=== PATIENT | male | born 1995 | race African-American/Black ===

== ENCOUNTER 2019-08-13 17:30 | Inpatient (IN) ==
[2019-08-13] MEDS ORDERED: ATIVAN ONE (17:34)
[2019-08-13] MEDS ORDERED: NARCAN IV ONE (18:05)
[2019-08-13] MEDS ORDERED: ATIVAN IV ONE (18:06)
[2019-08-13] MEDS ORDERED: NS 1,000 ML IV PRN (18:27)
--- NOTE | 2019-08-13 18:33 | EKG Report ---
Test Performed on : 08/13/2019 5:41:52 PM Test Reason : unresponsive Blood Pressure : / mmHG Vent. Rate : 112 BPM Atrial Rate : 112 BPM P-R Int : 168 ms QRS Dur : 082 ms QT Int : 328 ms P-R-T Axes : 096 081 076 degrees QTc Int : 447 ms Sinus tachycardia. Possible Left atrial enlargement Nonspecific T wave abnormality Abnormal ECG No previous ECGs available Unconfirmed Result
--- NOTE | 2019-08-13 18:33 | PROVIDER DOCUMENTATION ---
This chart was entered by Madeleine Pickering Scribe, acting as scribe for Darline Rodriguez MD. HPI-Neurological Disorder - General Stated Complaint: POSS INTOXICATION Time Seen by Provider: 08/13/19 17:31 Source: EMS Allergies/Adverse Reactions: Patient Allergies Allergy/AdvReac Type Severity Reaction Status Date / Time No Known Allergies Allergy Verified 12/31/17 16:07 Home Medications: Home Medication List Medication Instructions Recorded Confirmed Last Taken Type Unobtainable [Home Meds 08/13/19 08/13/19 Unknown History Unobtainable] - History of Present Illness-Neuro Nature of Presenting Problem: Patient is a 23 year old male who presents to the ED via EMS with AMS. EMS states the call for the patient came in as hallucinations then the patient became unresponsive in route. EMS states patient refused to answer when police asked if he had used drugs. EMS reports patient's family stated patient has a history of schizophrenia and has not been taking his medications. upon arrival patient was unresponsive, foaming and myoclonus, pupils were pinpoint Severity: reports: moderate Onset/Duration: reports: just prior to arrival Timing: reports: still present Context: reports: other (AMS) Character of Altered Mental Status: reports: unresponsive Similar Symptoms Previously?: No Recently seen or treated by another doctor?: No Review of Systems - Adult - REVIEW OF SYSTEMS - ADULT ROS:: unobtainable per condition Constitutional: reports: no symptoms reported Eyes: reports: no symptoms reported Ears, Nose, Mouth & Throat: reports: no symptoms reported Cardiovascular: reports: no symptoms reported Respiratory: reports: no symptoms reported Gastrointestinal: reports: no symptoms reported Genitourinary: reports: no symptoms reported Musculoskeletal: reports: no symptoms reported Integumentary: reports: no symptoms reported Neurological: reports: no symptoms reported Psychiatric: reports: no symptoms reported Endocrine: reports: no symptoms reported Hematologic/Lymphatic: reports: no symptoms reported Allergic/Immunologic: reports: no symptoms reported All Other Systems: Reviewed and Negative Past History - Adult - PAST MEDICAL HISTORY-ADULT Review of Records: reports: Old Records Reviewed, Nursing Assessment Review, Medications Reviewed, Social history reviewed & non-contributory. Major Childhood Illnesses: reports: denies history Cardiovascular: reports: denies history Respiratory: reports: denies history Gastrointestinal: reports: denies history Obstetrical/Gynecological: reports: denies history Genitourinary: reports: denies history Musculoskeletal: reports: denies history Neurological: reports: denies history Psychiatric: reports: depression, schizophrenia Endocrine/Immune: reports: denies history Other Conditions: reports: denies history - PRIOR SURGERIES/PROCEDURES Surgical/Procedure History: reports: reviewed, not pertinent - PRIOR HOSPITALIZATIONS Prior Hospitalizations: reports: none - IMMUNIZATION STATUS Childhood Immunizations: See Nurse Assessment Flu Vaccine: See Nurse Assessment - FAMILY HISTORY Family History: reviewed, not pertinent - SOCIAL HISTORY Smoking: cigarettes (former) Substance Use: denies Physical Exam- Neurological - Physical Exam-Neuro Initial Vital Signs Reviewed: Yes General Appearance: other (unresponsive) HENMT: normocephalic/atraumatic Head Injury: no evidence of injury Respiratory: chest non-tender, lungs clear, increased rate Cardiovascular: tachycardia 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 Exam: other (unable to assess per patient's condition) Coordination/Gait: other (unable to assess per patient's condition) Motor/Sensory: other (unable to assess per patient's condition) Neurologic: other (unable to assess per patient's condition) Integumentary: normal color, normal turgor, warm/dry Psych/Mental Status: other (unable to assess per patient's condition) Progress - PLAN OF CARE/RESULTS Progress/Plan/Lab Results: Laboratory Results - last 24 hr 08/13/19 08/13/19 08/13/19 17:49 17:55 17:55 WBC 7.27 RBC 4.65 L Hgb 13.9 L Hct 41.1 L MCV 88.4 MCH 29.9 MCHC 33.8 RDW Std Deviation 11.9 Plt Count 166 MPV 13.0 H Immature Gran % (Auto) 0.1 Neut % (Auto) 57.8 Lymph % (Auto) 30.7 Weld % (Auto) 9.8 H Eos % (Auto) 1.2 Baso % (Auto) 0.4 Immature Gran # (Auto) 0.01 Neut # (Auto) 4.20 Lymph # (Auto) 2.23 Weld # (Auto) 0.71 H Eos # (Auto) 0.09 Baso # (Auto) 0.03 PT INR PTT (Actin FS) Specimen Type Sample Site POC pH pH POC pCO2 pCO2 POC pO2 pO2 POC HCO3 HCO3 POC Total CO2 Base Excess POC Base Excess POC O2 Saturation Oxyhemoglobin ABG O2 Sat (Calculated) ABG O2 Saturation ABG Carboxyhemoglobin ABG Methemoglobin Brant Test A-a O2 Difference Total Hemoglobin POC Hemoglobin POC Hematocrit POC Sodium POC Potassium POC Ioniz Calcium Lactate Blood Gas Modality FiO2 % Sodium Potassium Chloride Carbon Dioxide Anion Gap BUN Creatinine Estimated GFR/1.73 m2 BUN/Creatinine Ratio Glucose POC Glucose 90 Calculated Osmolality Calcium Total Bilirubin AST ALT Alkaline Phosphatase Troponin T < 0.010 Total Protein Albumin Globulin Albumin/Globulin Ratio Urine Source Urine Color Urine Clarity Urine pH Ur Specific [place] Urine Protein Urine Ketones Urine Blood Urine Nitrite Urine Bilirubin Urine Urobilinogen Urine Microscopic RBC Urine WBC Urine Microscopic WBC Ur Epithelial Cells Urine Crystals Urine Bacteria Urine Casts Urine Yeast Urine Glucose Urine Opiates Screen Ur Oxycodone Screen Urine Methadone Screen U Propoxyphene Qual Ur Barbituates Screen Ur Tricyclics Screen Ur Phencyclidine Scrn Ur Amphetamines Screen U Methamphetamines Scrn U Benzodiazepines Scrn Urine Cocaine Screen U Cannabinoids Screen Plasma/Serum Ethyl Alc 08/13/19 08/13/19 08/13/19 17:55 17:55 17:55 WBC RBC Hgb Hct MCV MCH MCHC RDW Std Deviation Plt Count MPV Immature Gran % (Auto) Neut % (Auto) Lymph % (Auto) Weld % (Auto) Eos % (Auto) Baso % (Auto) Immature Gran # (Auto) Neut # (Auto) Lymph # (Auto) Weld # (Auto) Eos # (Auto) Baso # (Auto) PT 13.9 INR 1.02 PTT (Actin FS) 29.7 Specimen Type Sample Site POC pH pH POC pCO2 pCO2 POC pO2 pO2 POC HCO3 HCO3 POC Total CO2 Base Excess POC Base Excess POC O2 Saturation Oxyhemoglobin ABG O2 Sat (Calculated) ABG O2 Saturation ABG Carboxyhemoglobin ABG Methemoglobin Brant Test A-a O2 Difference Total Hemoglobin POC Hemoglobin POC Hematocrit POC Sodium POC Potassium POC Ioniz Calcium Lactate Blood Gas Modality FiO2 % Sodium 141 Potassium 3.0 L Chloride 100 Carbon Dioxide 26 Anion Gap 15 BUN 10 Creatinine 1.0 Estimated GFR/1.73 m2 > 60 BUN/Creatinine Ratio 10 Glucose 116 H POC Glucose Calculated Osmolality 281 Calcium 10.1 Total Bilirubin 0.60 AST 38 H ALT 16 Alkaline Phosphatase 100 Troponin T Total Protein 7.5 Albumin 4.9 Globulin 3.0 Albumin/Globulin Ratio 2.0 Urine Source Urine Color Urine Clarity Urine pH Ur Specific [place] Urine Protein Urine Ketones Urine Blood Urine Nitrite Urine Bilirubin Urine Urobilinogen Urine Microscopic RBC Urine WBC Urine Microscopic WBC Ur Epithelial Cells Urine Crystals Urine Bacteria Urine Casts Urine Yeast Urine Glucose Urine Opiates Screen Ur Oxycodone Screen Urine Methadone Screen U Propoxyphene Qual Ur Barbituates Screen Ur Tricyclics Screen Ur Phencyclidine Scrn Ur Amphetamines Screen U Methamphetamines Scrn U Benzodiazepines Scrn Urine Cocaine Screen U Cannabinoids Screen Plasma/Serum Ethyl Alc 08/13/19 08/13/19 08/13/19 18:57 19:09 19:54 WBC RBC Hgb Hct MCV MCH MCHC RDW Std Deviation Plt Count MPV Immature Gran % (Auto) Neut % (Auto) Lymph % (Auto) Weld % (Auto) Eos % (Auto) Baso % (Auto) Immature Gran # (Auto) Neut # (Auto) Lymph # (Auto) Weld # (Auto) Eos # (Auto) Baso # (Auto) PT INR PTT (Actin FS) Specimen Type ARTERIAL Sample Site L RADIAL POC pH 7.423 pH 7.45 POC pCO2 44.0 pCO2 38 POC pO2 21.0 L* pO2 99 POC HCO3 28.7 H HCO3 26.7 H POC Total CO2 30 H Base Excess 2.4 POC Base Excess 4 H POC O2 Saturation 37 L Oxyhemoglobin 94.6 L ABG O2 Sat (Calculated) 19.2 ABG O2 Saturation 99.0 ABG Carboxyhemoglobin 3.10 H ABG Methemoglobin 1.3 Brant Test YES A-a O2 Difference 3.0 Total Hemoglobin 14.4 POC Hemoglobin 13.9 POC Hematocrit 41 POC Sodium 138 POC Potassium 3.1 L POC Ioniz Calcium 1.19 Lactate 0.80 Blood Gas Modality ROOM AIR FiO2 % 21.0 Sodium Potassium Chloride Carbon Dioxide Anion Gap BUN Creatinine Estimated GFR/1.73 m2 BUN/Creatinine Ratio Glucose POC Glucose 90 Calculated Osmolality Calcium Total Bilirubin AST ALT Alkaline Phosphatase Troponin T Total Protein Albumin Globulin Albumin/Globulin Ratio Urine Source Urine Color Urine Clarity Urine pH Ur Specific [place] Urine Protein Urine Ketones Urine Blood Urine Nitrite Urine Bilirubin Urine Urobilinogen Urine Microscopic RBC Urine WBC Urine Microscopic WBC Ur Epithelial Cells Urine Crystals Urine Bacteria Urine Casts Urine Yeast Urine Glucose Urine Opiates Screen NONE DETECTED Ur Oxycodone Screen NONE DETECTED Urine Methadone Screen NONE DETECTED U Propoxyphene Qual NONE DETECTED Ur Barbituates Screen NONE DETECTED Ur Tricyclics Screen NONE DETECTED Ur Phencyclidine Scrn NONE DETECTED Ur Amphetamines Screen NONE DETECTED U Methamphetamines Scrn NONE DETECTED U Benzodiazepines Scrn PRESUMPTIVE POSITIVE A Urine Cocaine Screen NONE DETECTED U Cannabinoids Screen PRESUMPTIVE POSITIVE A Plasma/Serum Ethyl Alc 08/13/19 19:54 WBC RBC Hgb Hct MCV MCH MCHC RDW Std Deviation Plt Count MPV Immature Gran % (Auto) Neut % (Auto) Lymph % (Auto) Weld % (Auto) Eos % (Auto) Baso % (Auto) Immature Gran # (Auto) Neut # (Auto) Lymph # (Auto) Weld # (Auto) Eos # (Auto) Baso # (Auto) PT INR PTT (Actin FS) Specimen Type Sample Site POC pH pH POC pCO2 pCO2 POC pO2 pO2 POC HCO3 HCO3 POC Total CO2 Base Excess POC Base Excess POC O2 Saturation Oxyhemoglobin ABG O2 Sat (Calculated) ABG O2 Saturation ABG Carboxyhemoglobin ABG Methemoglobin Brant Test A-a O2 Difference Total Hemoglobin POC Hemoglobin POC Hematocrit POC Sodium POC Potassium POC Ioniz Calcium Lactate Blood Gas Modality FiO2 % Sodium Potassium Chloride Carbon Dioxide Anion Gap BUN Creatinine Estimated GFR/1.73 m2 BUN/Creatinine Ratio Glucose POC Glucose Calculated Osmolality Calcium Total Bilirubin AST ALT Alkaline Phosphatase Troponin T Total Protein Albumin Globulin Albumin/Globulin Ratio Urine Source CATH Urine Color YELLOW Urine Clarity CLEAR Urine pH 6.5 Ur Specific [place] 1.020 Urine Protein TRACE A Urine Ketones 3+(Large) A Urine Blood NEGATIVE Urine Nitrite NEGATIVE Urine Bilirubin NEGATIVE Urine Urobilinogen 1 Urine Microscopic RBC Not Reportable Urine WBC 1+ A Urine Microscopic WBC 10-20 A Ur Epithelial Cells >10 A Urine Crystals NONE SEEN Urine Bacteria 1+ Urine Casts NONE SEEN Urine Yeast NONE SEEN Urine Glucose NEGATIVE Urine Opiates Screen Ur Oxycodone Screen Urine Methadone Screen U Propoxyphene Qual Ur Barbituates Screen Ur Tricyclics Screen Ur Phencyclidine Scrn Ur Amphetamines Screen U Methamphetamines Scrn U Benzodiazepines Scrn Urine Cocaine Screen U Cannabinoids Screen Plasma/Serum Ethyl Alc Orders Category Date Time Status Admit - [facility] Routine AdmDCTranf 08/13/19 20:00 Active Activity - Up Ad Julia ORDERED Care 08/13/19 20:03 Active Cardiac Monitoring DIRECTED Care 08/13/19 18:28 Completed Finger Stick Blood Sugar (ED) DIRECTED Care 08/13/19 18:28 Completed Mendez Cath Insertion ORDERED Care 08/13/19 19:57 Active Neurological Check Q 4-HR ASSESS Care 08/13/19 20:03 Active Oxygen Therapy- ED Nursing DIRECTED Care 08/13/19 18:28 Active Saline Loc DIRECTED Care 08/13/19 20:03 Active Saline Loc NOW Care 08/13/19 18:28 Active Use Oxygen.Protocol ORDERED Care 08/13/19 17:57 Active Vital Signs Order Q 4-HR ASSESS Care 08/13/19 20:03 Active NPO Diet 08/13/19 20:03 Active CHEST-PORTABLE [RAD] Stat Exams 08/13/19 18:[address] HEAD W/O CONTRAST [CT] Stat Exams 08/13/19 18:28 Completed ABG [RESP] Routine Lab 08/13/19 19:09 Completed ALCOHOL BLOOD Stat Lab 08/13/19 17:55 Completed CBC WITH ELECTRONIC DIFF [HEME] Stat Lab 08/13/19 17:55 Completed COMPREHENSIVE METABOLIC PANEL [CHEM] Stat Lab 08/13/19 17:55 Completed PROTIME WITH INR [COAG] Stat Lab 08/13/19 17:55 Completed PTT [COAG] Stat Lab 08/13/19 17:55 Completed TROPONIN T Stat Lab 08/13/19 17:55 Completed URINE DRUG SCREEN PL Stat Lab 08/13/19 19:54 Completed ua [URINALYSIS PL W/POSS RFLX CULT] [URINALYSIS] Stat Lab 08/13/19 19:54 Completed 0.9% Sodium Chloride Inj [Ns] 1,000 ml Med 08/13/19 20:03 Discontinued IV 150 mls/hr 0.9% Sodium Chloride Inj [Ns] 1,000 ml Med 08/13/19 18:27 Discontinued IV 999 mls/hr 0.9% Sodium Chloride Inj [Ns] 1,000 ml Med 08/13/19 19:55 Discontinued IV 999 mls/hr Ketorolac [Toradol] Med 08/13/19 20:03 Discontinued 15 mg IV Q4H PRN PRN Levetiracetam [Keppra] 500 mg Med 08/13/19 21:00 Active 0.9% Sodium Chloride Inj [Ns] 100 ml IV BID Lorazepam [Ativan] Med 08/13/19 18:06 Discontinued 2 mg IV NOW ONE Lorazepam [Ativan] Med 08/13/19 20:04 Discontinued 2 mg IV Q6H PRN PRN Naloxone [Narcan] Med 08/13/19 18:05 Discontinued 0.2 mg IV NOW ONE Ondansetron [Zofran] Med 08/13/19 20:03 Discontinued 4 mg IV Q4H PRN PRN Oxygen Device Stat Oth 08/13/19 17:57 Active EKG [EKG] Stat Ther 08/13/19 18:28 Draft Transfer/Admit Order [TRANSFER] Routine Transfer 08/13/19 20:02 Completed Result Diagrams: 08/13/19 17:55 08/13/19 17:55 - CONSULTS/PCP/HOSPITALIST Notification #1 *Consult/PCP/Hospitalist*: Dr Rios Time Discussed: 19:30 Consult Disposition: Admit (ok to admit) Departure - Departure Date of Disposition Decision: 08/13/19 Time of Disposition Decision: 19:30 DIAGNOSIS: Unresponsive episode, Status epilepticus Disposition: ADMITTED INPATIENT 09 Certified Medical Emergency: Emergent Condition: Good - Critical Care Note This patient required my direct & personal management of CC.: No Attestation - Physician/ SHAR Attestation Patient care was provided by Advanced Practice Provider:: No The physician spent face to face time with patient:: Yes Advanced Practice Provider documentation review:: Supervising physician onsite and consulted in the evaluation and care of this patient. The physician did have a face to face encounter with the patient. This chart was documented by the indicated scribe, (Madeleine Pickering Scribe) and accurately reflects the services I performed and decisions made by me, Darline Rodriguez MD, as attested by the provider's signature.
[2019-08-13 18:48] LABS: BASO# 0.03 X1000 (0.0-0.2); BASO% 0.4 % (0.0-0.8); EOS# 0.09 X1000 (0.0-0.7); EOS% 1.2 % (0.0-10.0); HEMATOCRIT 41.1 % (42.0-52.0); HEMOGLOBIN 13.9 g/dL (14.0-18.0); IMM GRAN# 0.01 X1000 (0.0-0.04); IMM GRAN% 0.1 % (0.0-0.5); LYMPH# 2.23 X1000 (1.2-3.4); LYMPH% 30.7 % (20.5-51.1); MCH 29.9 PG (27-31); MCHC 33.8 g/dL (33-37); MCV 88.4 FL (81-99); MONO# 0.71 X1000 (0.11-0.59); MONO% 9.8 % (1.7-9.3); NEUT% 57.8 % (42.2-75.2); PLT 166 X1000 (130-400); RBC 4.65 XMIL (4.7-6.1); RDW 11.9 % (11.5-14.5); WBC 7.27 X1000 (4.8-10.8)
[2019-08-13 19:02] LABS: INR 1.02; PROTIME 13.9 Seconds (11.0-16.0)
[2019-08-13 19:03] LABS: PTT 29.7 Seconds (22.3-41.8)
[2019-08-13 19:17] LABS: AGAP 15; ALBUMIN 4.9 g/dL (3.5-5.0); ALKALINE PHOSPHATASE 100 U/L (32-122); BUN 10 mg/dL (8-22); CALCIUM 10.1 mg/dL (8.8-10.2); CHLORIDE 100 mmol/L (98-107); COSMO 281; ESTIMATED GFR > 60; GLUCOSE 116 mg/dL (70-104); GOT 38 U/L (10-34); GPT 16 U/L (10-44); SODIUM 141 mmol/L (136-145); TCO2 26 mmol/L (25-35); TOTAL PROTEIN 7.5 g/dL (6.3-8.3)
--- NOTE | 2019-08-13 19:17 | Diag Imaging Result Doc PS360 ---
EXAM: CT HEAD W/O CONTRAST INDICATION: unresponsive, seizure TECHNIQUE: This exam was performed using automated exposure control, adjustment of mA or kV according to patient size, and/or use of iterative reconstruction technique. COMPARISON: None. FINDINGS: There is no definite acute infarct given the limited sensitivity of CT versus MRI. There is no discrete intracranial mass, mass effect, or intracranial hemorrhage. There is minimal right maxillary sinus mucosal thickening. Surrounding soft tissues and bony structures are essentially unremarkable, otherwise. IMPRESSION: No evidence of acute intracranial pathology. Electronically signed by Sarmad Harris 08/13/2019 7:14 PM
[2019-08-13 19:31] LABS: BE 2.4 mmoll (-3.0-3.0); BLOOD TYPE ARTERIAL; HCO3-(ACT) 26.7 mmoll (20.0-26.0); METHB 1.3 % (0.0-1.5); O2(CT) 19.2 mL/dL (15.0-23.0); O2HB 94.6 % (95.0-99.0); PCO2(98.6) 38 mmHg (35-45); PO2(98.6) 99 mmHg (60-100); SAMPLE BLOOD; THB 14.4 g/dL (11.5-17.4); pH(98.6) 7.45 (7.35-7.45)
--- NOTE | 2019-08-13 19:34 | Diag Imaging Result Doc PS360 ---
EXAM: CHEST-PORTABLE INDICATION: unresponsive TECHNIQUE: One view COMPARISON: 12/03/2018 FINDINGS: The lungs are grossly clear. There is no discrete pleural fluid collection or pneumothorax. The cardiomediastinal silhouette and central vasculature are grossly unremarkable. IMPRESSION: No evidence of acute pathology by plain radiograph. Electronically signed by Sarmad Harris 08/13/2019 7:32 PM
[2019-08-13 19:35] LABS: ALLEN TEST YES; MODALITY ROOM AIR
[2019-08-13] MEDS ORDERED: NS 1,000 ML IV ONE ×3 (19:55→22:23)
[2019-08-13] MEDS ORDERED: TORADOL IV PRN (20:03)
[2019-08-13] MEDS ORDERED: ZOFRAN IV PRN (20:03)
[2019-08-13] MEDS ORDERED: ATIVAN IV PRN (20:04)
[2019-08-13 20:36] LABS: UR AMPHETAMINES QUAL NONE DETECTED (NONE DETECT); UR BARBITUATES QUAL NONE DETECTED (NONE DETECT); UR BENZODIAZEPIN QUAL PRESUMPTIVE POSITIVE (NONE DETECT); UR CANNABINOIDS QUAL PRESUMPTIVE POSITIVE (NONE DETECT); UR COCAINE QUAL NONE DETECTED (NONE DETECT); UR METHADONE QUAL NONE DETECTED (NONE DETECT); UR METHAMPHETAMINE QUAL NONE DETECTED (NONE DETECT); UR OPIATES QUAL NONE DETECTED (NONE DETECT); UR OXYCODONE QUAL NONE DETECTED (NONE DETECT); UR PCP QUAL NONE DETECTED (NONE DETECT); UR PROPOXYPHENE QUAL NONE DETECTED (NONE DETECT); UR TCA QUAL NONE DETECTED (NONE DETECT)
[2019-08-13] MEDS ORDERED: KEPPRA 500 MG in NS 100 ML IV SCH (21:00)
[2019-08-13 21:04] LABS: BILIRUBIN URINE NEGATIVE (NEGATIVE); BLOOD URINE NEGATIVE (NEGATIVE); CLARITY CLEAR (CLEAR); COLOR YELLOW; GLUCOSE URINE NEGATIVE (NEGATIVE); KETONE URINE 3+(Large) mg/dL (NEGATIVE); LEUKOCYTES URINE 1+ (NEGATIVE); NITRITE URINE NEGATIVE (NEGATIVE); PH URINE 6.5; PROTEIN URINE TRACE mg/dL (NEGATIVE); UROBILINOGEN URINE 1 mg/dL
[2019-08-13 21:09] LABS: URINE BACTERIA 1+ /HFP; URINE CAST NONE SEEN /LPF; URINE CRYSTAL NONE SEEN /HPF; URINE EPITHELIAL CELLS >10 /HPF (<10); URINE SOURCE CATH; URINE YEAST NONE SEEN /HPF
[2019-08-13] MEDS: NS 1,000 ML IV SCH (22:51)
[2019-08-14 00:12] LABS: I-STAT BE 4 mmoll (-2-3); I-STAT GLUCOSE 90 mg/dL (70-105); I-STAT HEMOGLOBIN 13.9 g/dL (11.5-17.5); I-STAT K 3.1 mmoll (3.5-4.9); I-STAT SODIUM 138 mmoll (138-146); I-STAT TCO2 30 mmoll (23-27); I-STAT pH 7.423 (7.350-7.450)
[2019-08-14] MEDS: NS 1,000 ML IV SCH ×3 (07:51→22:18)
[2019-08-14] MEDS ORDERED: TYLENOL PO PRN (08:20)
[2019-08-14] MEDS ORDERED: ZOFRAN IV PRN (08:20)
[2019-08-14] MEDS ORDERED: ATIVAN IV PRN (08:28)
[2019-08-14 08:59] LABS: BE 0.1 mmoll (-3.0-3.0); BLOOD TYPE ARTERIAL; METHB 1.4 % (0.0-1.5); O2(CT) 16.7 mL/dL (15.0-23.0); O2HB 95.2 % (95.0-99.0); PCO2(98.6) 39 mmHg (35-45); PO2(98.6) 86 mmHg (60-100); SAMPLE BLOOD; SAO2 98.9 % (95.0-100.0); THB 12.4 g/dL (11.5-17.4); pH(98.6) 7.41 (7.35-7.45)
[2019-08-14] MEDS ORDERED: KEPPRA 1,500 MG/NS 1,500 MG/100 ML IVPB IV ONE (09:00)
[2019-08-14] MEDS ORDERED: KEPPRA 500 MG/NS 500 MG/100 ML IVPB IV SCH (09:00)
[2019-08-14 09:02] LABS: ALLEN TEST YES; MODALITY ROOM AIR
[2019-08-14 09:09] LABS: BASO# 0.04 X1000 (0.0-0.2); BASO% 0.8 % (0.0-0.8); EOS# 0.11 X1000 (0.0-0.7); EOS% 2.1 % (0.0-10.0); HEMATOCRIT 36.3 % (42.0-52.0); HEMOGLOBIN 11.9 g/dL (14.0-18.0); IMM GRAN# 0.01 X1000 (0.0-0.04); IMM GRAN% 0.2 % (0.0-0.5); LYMPH# 1.73 X1000 (1.2-3.4); LYMPH% 32.5 % (20.5-51.1); MCH 29.8 PG (27-31); MCHC 32.8 g/dL (33-37); MCV 90.8 FL (81-99); MONO# 0.41 X1000 (0.11-0.59); MONO% 7.7 % (1.7-9.3); MPV 12.3 FL (7.4-10.4); NEUT# 3.02 X1000 (1.4-6.5); NEUT% 56.7 % (42.2-75.2); PLT 141 X1000 (130-400); RDW 12.1 % (11.5-14.5); WBC 5.32 X1000 (4.8-10.8)
--- NOTE | 2019-08-14 09:28 | EKG Report ---
Test Performed on : 08/14/2019 08:31:33 AM Test Reason : bradycardic/tachycardic arrythmia Blood Pressure : / mmHG Vent. Rate : 072 BPM Atrial Rate : 078 BPM P-R Int : 000 ms QRS Dur : 074 ms QT Int : 370 ms P-R-T Axes : 059 086 078 degrees QTc Int : 405 ms Normal sinus rhythm. Otherwise normal ECG When compared with ECG of 14-AUG-2019 08:30, (Unconfirmed) Current undetermined rhythm precludes rhythm comparison, needs review Confirmed by Ant Masterson MD ([id number]) on 08/16/2019 7:45:56 AM
[2019-08-14 10:02] LABS: AGAP 10; ALBUMIN 3.9 g/dL (3.5-5.0); ALKALINE PHOSPHATASE 81 U/L (32-122); BUN 8 mg/dL (8-22); CALCIUM 9.1 mg/dL (8.8-10.2); CHLORIDE 109 mmol/L (98-107); COSMO 283; CREATININE 0.9 mg/dL (0.7-1.2); ESTIMATED GFR > 60; GLUCOSE 85 mg/dL (70-104); GOT 25 U/L (10-34); GPT 12 U/L (10-44); MAGNESIUM 1.8 mg/dL (1.5-2.7); POTASSIUM 3.6 mmol/L (3.5-5.1); SODIUM 143 mmol/L (136-145); TCO2 23 mmol/L (25-35); TOTAL PROTEIN 6.3 g/dL (6.3-8.3)
[2019-08-14] MEDS: POTASSIUM CHLORIDE 20 MEQ/SWI 20 MEQ/100 ML IVPB IV SCH ×2 (10:49→12:30)
--- NOTE | 2019-08-14 10:53 | HISTORY AND PHYSICAL ---
PRIMARY CARE PROVIDER: No one. CHIEF COMPLAINT: Mr. Vasile Osorio is a 23-year-old male with a medical history of schizoaffective disorder, bipolar type, and generalized anxiety disorder. Apparently, there was a call for the patient that came as he was noted to have hallucinations, but then became under unresponsive in route. He refused to answer the police if he had any drugs or use any drugs. Apparently, the patient's family stated that he had a history of schizophrenia, not been on his medications. When he arrived, he was unresponsive, foaming and myoclonus. His pupils were pinpoint. Also noted that once he came through, he was able to tell them his name, but then this morning had another seizure-like activity. It lasted close to 2 minutes. It was noted that he had full body jerking type motions, head turn to the left. Pupils were equal and reactive. Postictal right after but also that was noted he was having bradycardia along with tachycardia anywhere from 50s up to the 1 teens and is noted that every time he went up to the teens is when he would have those small jerking like body movements, but was alert right after. He is very still very confused. He is unable to really answer many questions appropriately, comes out with odd responses. Currently, he is having an echocardiogram performed at the bedside. He still continues to have jeevan-tachy pretty continuously and we are going to send him over to [facility] ICU for Cardiology to follow more closely and may be if he still needs to have a neurology consult we can have one cruise consultant on Saturday. We started him on antiepileptic drugs. We will monitor him closely. PAST MEDICAL HISTORY: This is obtained through old medical records: 1. Schizoaffective disorder bipolar type. 2. Generalized anxiety disorder. 3. Suicidal ideations. 4. Erratic behavior. 5. It is noted that he was admitted to [facility] April 15, 2019 with suicidal ideations in and erratic behavior. He was held on verbal court order, told the family at that time he wanted to burn himself and he was having paranoid delusions, neglecting hygiene. Medication noncompliance at that time. SURGICAL HISTORY: None. SOCIAL HISTORY: 04/15/2019 admission to [facility] or to [facility] it looks like and reports that he currently lives with his brother and according to an older chart he does use tobacco, denies alcohol and he does admit actually that he smokes marijuana. FAMILY HISTORY: Unknown. He would not answer questions. ALLERGIES: No known drug allergies. HOME MEDICATIONS: Unable to answer that as well and trying to review external medication history. It does not look like he has had anything filled either. REVIEW OF SYSTEMS: Again unable to obtain. He denies any pain. He denies ever having seizures. This was difficult to obtain. PHYSICAL EXAMINATION: VITAL SIGNS: Temperature 99.4 degrees, heart rate 50, respiratory rate 24, blood pressure 111/64, O2 saturation 100% on room air, and his heart rate anywhere from 40s to 1 teens. It is in an out every few seconds. GENERAL: Mr. Vasile Osorio is a 23-year-old male. He has a very bad body odor, unkept, dirty socks. He it appears as though he has not been taking good hygiene of himself. HEENT: Atraumatic, normocephalic. Pupils are equal and reactive. He will not follow commands, so he will not do extraocular movements. Mucous membranes are moist. NECK: Trachea midline. CARDIOVASCULAR: Again S1-S2 but it can be tachycardic and bradycardic when auscultating. No lower extremity edema. +2 dorsalis and radial pulses. Negative JVD or carotid bruits. No rubs gallops or murmurs. PULMONARY: Clear to auscultation. Bilateral breath sounds. No accessory muscle use or work of breathing noted. GI: Soft, nontender, nondistended. Positive bowel sounds x4. EXTREMITIES: Moves all extremities equally. Full range of motion. NEUROLOGIC: Oriented to name only. He will not follow commands. LABORATORY DATA: White blood cells 5000, hemoglobin 11, hematocrit 36, platelet count 141,000. ABGs 7.41, pCO2 39, pO2 86, bicarb 25, base excess 0.1, saturation 95%, carboxyhemoglobin 2.3, lactate 0.8, this is on room air. Sodium 143, potassium 3.6, BUN 8, creatinine 0.9, glucose 85, calcium 9.1, magnesium 1.8, bilirubin 0.60, AST 25, ALT 12. Troponin less than 0.01. Albumin 3.9. Urinalysis trace protein, 3+ ketone, 1+ white blood cells, 10 to 20 microscopic white blood cells, 1+ bacteria. Urine positive for benzos and cannabinoids. Negative for alcohol. IMAGING: Chest x-ray: No evidence of acute findings. Head CT: No evidence of acute findings. EKG: Sinus tachycardia rate was 112. Repeat EKG today is undetermined rhythm. Rate was 72, QTc was 405 is probably a sinus. There was a P wave. It is a sinus rhythm. ASSESSMENT AND PLAN: 1. Questionable seizure-like activity could be heart related as it seems that he has this activity when he gets tachycardic almost is if the heart is beating hard and you could see his whole body beating with it. Despite that he has had p.r.n. Ativan ordered and has been started on Keppra. The patient denies ever having a seizure. Can consult neurology on Saturday. Head CT is negative. 2. Jeevan-tachy syndrome, cause unknown. He is currently getting an echocardiogram to fully evaluate. Keep electrolytes replaced. He was hypokalemic on admission and we will consult Cardiology. 3. Schizoaffective disorder. It is really unclear what medications he takes for this. He is noncompliant with his medications and has been off of them. Apparently, he was on at one point, Cogentin 101 mg p.o. twice a day and Seroquel 100 mg p.o. daily, so those can be resumed once he is more alert and not having any issues with questionable seizures. 4. Deep venous thrombosis prophylaxis sequential compression devices. Dictated by JOVON Ovalle for Ivan Ying MD Addendum: Patient seen and examined by myself. Agree with JOVON note. It reflects my assessment and plan. Patient is being admitted to hospital for questionable seizure activity. While he was admitted to hospital we noticed he has jeevan tachy arrhythmia so we will consult Cardiology and transfer this patient to ICU at [facility]. Will monitor patient closely. cc: JOVON Ovalle MD [facility] HOSPITALDorothy
--- NOTE | 2019-08-14 16:21 | Diag Imaging Result Doc PS360 ---
EXAM: MRI BRAIN W/WO CONTRAST HISTORY: suspected stroke TECHNIQUE: Routine with and without contrast. COMPARISON: None. FINDINGS: EXAM: MRI BRAIN W/WO CONTRAST HISTORY: suspected stroke TECHNIQUE: Multisequence, multiplanar images of the brain were obtained without contrast as per standard protocol. COMPARISON: None. FINDINGS: There are no extra-axial collections. Diffusion images show no evidence for acute infarct. There is no evidence for hemorrhage. There is no hydrocephalus. No midline shift or mass effect. There is no abnormal signal within the brainstem, cerebellum, or cerebral hemispheres. There are no abnormal regions of contrast enhancement. IMPRESSION: Normal pre and post contrasted MRI of the brain. Electronically signed by Sayra Minor 08/14/2019 4:19 PM
--- NOTE | 2019-08-14 17:09 | ECHO REPORT ---
ORDER DATE: 08/14/2019 INTERPRETING PHYSICIAN: Sushant Cruz MD INDICATION: A 23-year-old male with abnormal EKG. M-MODE MEASUREMENTS: Left ventricle end diastole: 4.2 cm. Left ventricle end systole: 3.0 cm. Posterior wall: 1.0 cm. Interventricular septum: 0.8 cm. Left atrium: 3.6 cm. Aortic diameter: 2.9 cm. SUMMARY OF 2-DIMENSIONAL IMAGIN. The left ventricular function is normal. Ejection fraction is estimated at 56%. There is no wall motion abnormality noted. The atria and the right ventricle appear to be normal. 2. The mitral valve looks normal. Color flow mapping unremarkable. 3. Pulsed wave Doppler of mitral inflow is normal. 4. The tissue Doppler of septal and lateral mitral annulus averages 14 cm. There is no diastolic dysfunction. 5. The pulmonary venous flow is normal. 6. The aortic valve has three cusps. They open normally. Color flow mapping is unremarkable. 7. The tricuspid valve shows a mild degree of regurgitation. 8. Pulmonary pressure is estimated at 29 mmHg. The pulmonic valve is unremarkable. 9. There is no pericardial effusion, no mass, and no thrombus. At the end of the study there were two injections of agitated saline that showed slight crossing of bubbles from right to left. No obvious atrial septal defect is apparent. On one occasion the bubbles appears to be entering the left atrium late during the cardiac cycles, suggesting that the right to left shunt might be taking place in the pulmonary circulation. If significant hypoxemia is found ,consider doing CT of lungs with special technique to identify AV malformation. (consult with Radiologist). Clinical correlation is recommended. cc: MD Ivan Sneed MD [facility]
[2019-08-14] MEDS ORDERED: KEPPRA 750 MG in NS 100 ML IV SCH ×2 (21:00→22:00)
--- NOTE | 2019-08-14 21:41 | CARDIOLOGY CONSULTATION ---
DATE: 08/14/2019 CONSULTATION REQUESTED BY: The hospitalist service. REASON FOR CONSULTATION: Cardiac arrhythmia. CHIEF COMPLAINT: Unresponsiveness, hallucinations. HISTORY: Patient presented to the emergency room at [facility] yesterday, 08/13/2019, with complaints of unresponsiveness and reported hallucinations. Per the EMS, the patient apparently refused to answer when he was confronted by police about using drugs. The patient has a history of mental disease. After being admitted to [facility], the nurses observed the presence of some cardiac arrhythmia when his heart rate seemed to slow down and then sped up intermittently. They got worried and notified the primary service who in turn requested consultation. I do not have the benefit of talking to any family member and there is no past record indicating the presence of any organic heart disease. The patient has been followed by Dr. Wilbert Macias. There are multiple entries in the medical records, going back to 12/06/2014,, about having a visit with the emergency room department and subsequently admissions to the [facility] with anger, rage, violent behavior, and subsequently a diagnosis of schizophrenia. PAST MEDICAL HISTORY: No past history can be obtained. SURGICAL HISTORY: Negative as far as I can tell. From review of records, psychiatrists and other physicians have not documented any major surgery. His history revolves around psychiatric illness which may be found in the pertinent records. SOCIAL HISTORY: He is single and he lives with a friend. He is unemployed. He is not taking any prescription medication. His drug screen at the time of presentation to the ER indicates that he has evidence of benzodiazepine and cannabinoids in his urine. FAMILY HISTORY: Unknown. ALLERGIES: Unable to identified. REVIEW OF SYSTEMS: Not obtainable. The patient is nonverbal at this time. PHYSICAL EXAMINATION: Vital signs: Blood pressure is 126/75, temperature 99 degrees, pulse 64, respirations 22. General: The patient is an adult male, slightly malnourished. According to bed scale and height, his BMI is 17.1. He is slender. He is just lying on his back unresponsive. He does not follow any commands or communicates or connects with me in any way. His pupils are relatively small and they react to light. He has withdrawal to painful stimuli. His breathing pattern is regular. HEENT: Otherwise unremarkable. No cervical bruits. No masses. Chest: Symmetrical breath sounds. Chest x-ray done in the ER showed no pathology in the chest. Heart: Sounds are regular and rhythmic. No gallop or murmur. His ECG shows sinus rhythm with prominent voltage and early repolarization, which is a normal variant. His echocardiogram today showed excellent LV systolic function, question of some small amount of shunting of bubbles from right to left, suggesting either patent foramen ovale, very small, versus AV malformation of the lung. Abdomen: Soft. No hepatosplenomegaly is noted. No bruits. Extremities: Show good pulses. No peripheral edema. Neurological: Again, he is not cooperative at this time. I do not think he is comatose. This is probably some sort of conversive reaction. EKG: shows SR with sinus arrhythmia, early repolarization. IMPRESSION: 1. Patient who has a borderline abnormal EKG with early repolarization and some sort of exaggeration of what would be physiologic sinus arrhythmia otherwise. The reason for that is unclear. However, I do not believe that is creating any hemodynamic disturbance. His pro BNP is normal. His echocardiogram does not show any left ventricular wall motion abnormality and there is no diastolic dysfunction. This in my opinion is a benign,probably normal variant cardiac arrhythmia. 2. Patient who is unresponsive. This appears to be a psychiatric presentation of conversive disorder or combination of other complex psychiatric pathology. We really need to get a psychiatrist on the case. 3. Long-term history of psychiatric illness. RECOMMENDATIONS: At this time, I only suggest observation. I do not believe there is any specific intervention warranted in this case other than observation. I will stand by and please call me if I can be of any further assistance. We really need to get a psychiatrist on-call to assist in this case, and after that perhaps consider neurologic evaluation. Thank you for asking us to participate in his evaluation. cc: Sushant Cruz MD [facility]
[2019-08-15 02:53] VITALS: BP 117/89
[2019-08-15] MEDS: NS 1,000 ML IV SCH (05:29)
[2019-08-15 06:38] LABS: BASO# 0.03 X1000 (0.0-0.2); BASO% 0.5 % (0.0-0.8); EOS% 1.6 % (0.0-10.0); HEMATOCRIT 41.6 % (42.0-52.0); HEMOGLOBIN 13.2 g/dL (14.0-18.0); LYMPH# 2.51 X1000 (1.2-3.4); LYMPH% 40.1 % (20.5-51.1); MCH 29.5 PG (27-31); MCHC 31.7 g/dL (33-37); MCV 92.9 FL (81-99); MONO# 0.49 X1000 (0.11-0.59); MONO% 7.8 % (1.7-9.3); NEUT# 3.13 X1000 (1.4-6.5); PLT 165 X1000 (130-400); RBC 4.48 XMIL (4.7-6.1); RDW 12.3 % (11.5-14.5); WBC 6.26 X1000 (4.8-10.8)
[2019-08-15 06:59] LABS: AGAP 12; ALB/GLOB RATIO 1.6; ALBUMIN 4.6 g/dL (3.5-5.0); ALKALINE PHOSPHATASE 99 U/L (32-122); BUN 7 mg/dL (8-22); CALCIUM 9.7 mg/dL (8.8-10.2); CHLORIDE 102 mmol/L (98-107); COSMO 276; CREATININE 1.1 mg/dL (0.7-1.2); ESTIMATED GFR > 60; GLUCOSE 102 mg/dL (70-104); GOT 46 U/L (10-34); GPT 29 U/L (10-44); MAGNESIUM 2.1 mg/dL (1.5-2.7); POTASSIUM 3.6 mmol/L (3.5-5.1); SODIUM 139 mmol/L (136-145); TCO2 25 mmol/L (25-35); TOTAL BILIRUBIN 0.59 mg/dL (0.20-1.00); TOTAL PROTEIN 7.4 g/dL (6.3-8.3)
--- NOTE | 2019-08-15 13:41 | EKG Report ---
Test Performed on : 08/15/2019 06:07:45 AM Test Reason : arrhythmia Blood Pressure : / mmHG Vent. Rate : 052 BPM Atrial Rate : 052 BPM P-R Int : 154 ms QRS Dur : 084 ms QT Int : 362 ms P-R-T Axes : 056 076 070 degrees QTc Int : 336 ms Sinus bradycardia. Otherwise normal ECG When compared with ECG of 14-AUG-2019 08:31, (Unconfirmed) Previous ECG has undetermined rhythm, needs review QT has shortened Confirmed by Kwabena DIOP, Mahesh Vaughn ([id number]) on 08/16/2019 7:26:31 AM
--- NOTE | 2019-08-15 14:30 | DISCHARGE SUMMARY ---
ADMISSION DATE: 08/13/2019 DISCHARGE DATE: 08/15/2019 ADDENDUM: Patient seen and examined by myself. Full note dictated and discussed with nurse practitioner. On discharge, patient is awake. He is in no current distress. Unfortunately he had a quite eventful morning. He became belligerent, angry, agitated, refused any care, refused IV, refused medications, refused [facility] consult. He began throwing things. Security was called. He refused to participate with their instructions and therefore he has been discharged under their care to skilled nursing. cc: Tex Gonsalez MD
--- NOTE | 2019-08-15 14:52 | DISCHARGE SUMMARY ---
ADMISSION DATE: 08/13/2019 DISCHARGE DATE: 08/15/2019 PRIMARY CARE PHYSICIAN: None. ADMISSION DIAGNOSES: 1. Questionable seizure-like activity. 2. Jeevan-tachy syndrome unknown. 3. Schizoaffective disorder. DISCHARGE DIAGNOSES: 1. Questionable seizure-like activity, resolved. 2. Jeevan-tachy syndrome, improved. 3. Schizoaffective disorder. SUMMARY OF FINDINGS: This is a 23-year-old male with a history of schizoaffective disorder, bipolar and generalized anxiety, came to the emergency room noting to have some hallucinations then became unresponsive en route, refused to answer the police if he used any drugs. His family stated that he had a history of schizophrenia and had not been on his medications. When he arrived he was unresponsive, foaming and myoclonus, his pupils are pinpoint but once he came to he was able tell him his name, had another seizure-like activity and lasted close to 2 minutes, had some full body jerking type motions head turn to the left. Pupils are equal and reactive, postictal state right after but was noted to be having some bradycardia along with tachycardia anywhere from the 50s up to the 1 teens so he was admitted and transferred to the intensive care unit at [facility]. We did Cardiology consultation and they felt that there were not any specific interventions warranted in the case other than observation. Cyrus that this was psych related and requested a psychiatric evaluation. We did that this morning, patient refused, became irate, was hitting and kicking the bathroom door yelling and stated "why does West have to come see me I'm not crazy, this is all fake," security came, the patient continued having outburst, police was notified and at bedside, officers told the patient that he could get up and leave on his own or they would escort him out of his room. He continued to lay in the bed. The patient was then placed in handcuffs, placed in a wheelchair. The officer called her sergeant and he told her to give the patient another chance to get up and walk and if he did not then to arrest him for criminal trespassing. He continued to lay in the wheelchair not responding so he was arrested and taken to intermediate for criminal trespassing at that point. TIME SPENT: 35 minutes. Dictated by JOVON Michaels for Tex Gonsalez MD cc: JOVON Michaels MD
--- NOTE | 2019-08-17 13:12 | EEG REPORT ---
DATE: 08/14/2019 DATE OF SERVICE: 08/14/2019 REFERRING PHYSICIAN: Dr. Jame Mitchell SERVICE ORDER CLERK: Lissa Polanco BACKGROUND INFORMATION TECHNIQUE: This is a digitally recorded portable routine EEG with video. HISTORY: This 23-year-old male patient with history of multiple psychiatric illnesses. He will not respond to nurses, but he did say okay when satellite technician asked the patient not to move during the test. He does not follow commands. EEG is ordered to detect evidence of seizures. MEDICATIONS: Include Keppra. EEG FINDINGS: A moderately well-formed 9.5 Hz posterior dominant alpha rhythm is seen symmetrically in the occipital regions, and attenuates with eye opening. The anterior background consists of mixed alpha and beta range frequencies. No definite persistent focal slowing. No epileptiform discharges. No seizures. Hyperventilation is not performed. Photic stimulation induces a normal driving response. No definite drowsiness. Stage II sleep is not seen. EKG demonstrates subtle irregularity in the RR interval. IMPRESSION AND CLINICAL CORRELATION: Normal routine EEG in the awake state. Of note, a normal EEG does not rule out epilepsy. Clinical correlation is recommended. cc: MD Ivan Martinez MD
== END 2019-08-15 09:20 | DRG 310 ==
LOC: P.ED 17:30 → P.ICU 20:50 → SUATTDRO 20:50 → ICU 08-14 18:03
PROVIDERS: ATTEND Family Medicine

== ENCOUNTER 2019-08-26 14:56 | Inpatient (IN) ==
[2019-08-26] MEDS ORDERED: DUONEB (A & A) INH ONE (16:32)
[2019-08-26] MEDS ORDERED: NS 1,000 ML IV ONE (16:32)
--- NOTE | 2019-08-26 17:03 | Diag Imaging Result Doc PS360 ---
CT HEAD W/O CONTRAST - 08/26/2019 INDICATION: seizure COMPARISON: 08/13/2019 FINDINGS: The ventricles and sulci are normal in size and contour. No intracranial mass or hemorrhage. The skull is intact. The sinuses mastoids and middle ears are clear. IMPRESSION: Negative exam. This exam was performed using automated exposure control, adjustment of mA or kV according to patient size, and/or use of iterative reconstruction technique Electronically signed by Nehemiah Ding 08/26/2019 5:01 PM
[2019-08-26 17:06] LABS: BASO# 0.05 X1000 (0.0-0.2); BASO% 0.6 % (0.0-0.8); EOS# 0.18 X1000 (0.0-0.7); EOS% 2.3 % (0.0-10.0); HEMATOCRIT 45.5 % (42.0-52.0); HEMOGLOBIN 15.8 g/dL (14.0-18.0); LYMPH# 3.62 X1000 (1.2-3.4); LYMPH% 46.6 % (20.5-51.1); MCH 29.9 PG (27-31); MCHC 34.7 g/dL (33-37); MONO# 0.68 X1000 (0.11-0.59); MONO% 8.8 % (1.7-9.3); NEUT# 3.24 X1000 (1.4-6.5); NEUT% 41.7 % (42.2-75.2); PLT 279 X1000 (130-400); RBC 5.29 XMIL (4.7-6.1); WBC 7.77 X1000 (4.8-10.8)
[2019-08-26 17:28] LABS: AGAP 15; ALB/GLOB RATIO 1.5; ALBUMIN 4.9 g/dL (3.5-5.0); ALKALINE PHOSPHATASE 115 U/L (32-122); BUN 22 mg/dL (8-22); CALCIUM 10.6 mg/dL (8.8-10.2); CHLORIDE 99 mmol/L (98-107); COSMO 282; ESTIMATED GFR > 60; GLUCOSE 87 mg/dL (70-104); GOT 27 U/L (10-34); GPT 16 U/L (10-44); MAGNESIUM 2.2 mg/dL (1.5-2.7); POTASSIUM 3.8 mmol/L (3.5-5.1); SODIUM 140 mmol/L (136-145); TCO2 26 mmol/L (25-35); TOTAL BILIRUBIN 0.55 mg/dL (0.20-1.00); TOTAL PROTEIN 8.1 g/dL (6.3-8.3)
[2019-08-26] MEDS ORDERED: ATIVAN IV ONE (18:30)
[2019-08-26] MEDS ORDERED: KEPPRA 1,500 MG in NS 100 ML IV ONE (18:30)
--- NOTE | 2019-08-26 18:34 | PROVIDER DOCUMENTATION ---
This chart was entered by Delia Holt Scribe, acting as scribe for Art Tomas MD. HPI-Neurological Disorder - General Unable to obtain history due to:: altered - Seizure Episode details: reports: unknown duration, unknown number, details of seizure cannot be obtained, details of seizure cannot be verified Seizure related injury: other (abrasion left upper lip, abrasion left hand) <Art Tomas - Last Filed: 08/26/19 20:42> <Ryan Saucedo - Last Filed: 08/26/19 21:21> - General Chief Complaint: Seizure Stated Complaint: DECREASED RESPONSIVENESS Time Seen by Provider: 08/26/19 16:13 Allergies/Adverse Reactions: Patient Allergies Allergy/AdvReac Type Severity Reaction Status Date / Time No Known Allergies Allergy Verified 08/20/19 12:30 Home Medications: Home Medication List Medication Instructions Recorded Confirmed Last Taken Type NK [No Home Medications] 08/20/19 08/20/19 Unknown History - History of Present Illness-Neuro Nature of Presenting Problem: pt is a 23 yr old male presenting via EMS post seizure, per EMS pt had seizure [facility]. pt postictal, non verbal, drooling. pt responds with eye opening to deep sternal rub. (Art Tomas) Review of Systems - Adult - REVIEW OF SYSTEMS - ADULT ROS:: unobtainable per condition Integumentary: reports: other (abrasions to left lip, left hand) Neurological: reports: seizure <Art Tomas - Last Filed: 08/26/19 20:42> - REVIEW OF SYSTEMS - ADULT ROS:: unobtainable per condition Constitutional: reports: no symptoms reported, see HPI <Ryan Saucedo - Last Filed: 08/26/19 21:21> Past History - Adult - PAST MEDICAL HISTORY-ADULT Review of Records: reports: Old Records Reviewed, Nursing Assessment Review, Medications Reviewed, Social history reviewed & non-contributory. Major Childhood Illnesses: reports: denies history Cardiovascular: reports: denies history Respiratory: reports: denies history Gastrointestinal: reports: denies history Obstetrical/Gynecological: reports: denies history Genitourinary: reports: denies history Musculoskeletal: reports: denies history Neurological: reports: denies history Psychiatric: reports: depression Endocrine/Immune: reports: denies history Other Conditions: reports: denies history - PRIOR SURGERIES/PROCEDURES Surgical/Procedure History: reports: reviewed, not pertinent - PRIOR HOSPITALIZATIONS Prior Hospitalizations: reports: none - IMMUNIZATION STATUS Childhood Immunizations: See Nurse Assessment Flu Vaccine: See Nurse Assessment - FAMILY HISTORY Family History: reviewed, not pertinent <Art Tomas - Last Filed: 08/26/19 20:42> Physical Exam- Neurological - Physical Exam-Neuro Initial Vital Signs Reviewed: Yes General Appearance: lethargic (drooling, responds to painful stimuli with eye opening only, pt non verbal) Eye Exam: bilateral eye: normal inspection HENMT: other (abrasion to left upper lip) Head Injury: no evidence of injury Neck: supple Respiratory: lungs clear, normal breath sounds, no respiratory distress, no accessory muscle use Cardiovascular: normal peripheral pulses, regular rate, rhythm Abdominal Exam: normal bowel sounds, soft Lymphatic: no adenopathy Extremity: normal range of motion Integumentary: normal color, normal turgor, other (cool skin) - Glascow Coma Scale Best Eye Response: (2) open to pain Best Verbal Response: (1) no verbal response Best Motor Response: (5) localizes to pain Total Glascow Score: 8 <Art Tomas - Last Filed: 08/26/19 20:42> Progress - PLAN OF CARE/RESULTS Result Diagrams: 08/26/19 16:40 08/26/19 16:40 - REASSESSMENT Reassessment #1 Time Reassessed: 18:32 Status: unchanged (Patient has had several episodes of shaking/seizure activity, without waking up. Parents at bedside now state he has had recent onset seizure, but also has history of psych disorder and drug abuse. WIll give ativan and IV Keppra load and awiating further labs/urine. OLD CHART REVIEWED.) - CT/MRI 1 CT Study: Head Impression: Normal ( CT HEAD W/O CONTRAST - 08/26/2019 INDICATION: seizure COMPARISON: 08/13/2019 FINDINGS: The ventricles and sulci are normal in size and contour. No intracranial mass or hemorrhage. The skull is intact. The sinuses mastoids and middle ears are clear. IMPRESSION: Negative exam. This exam was performed using automated exposure control, adjustment of mA or kV according to patient size, and/or use of iterative reconstruction technique Electronically signed by Nehemiah Ding 08/26/2019 5:01 PM 08/26/19 170 Interpreting Physician: Nehemiah Ding MD Dictated Date/Time: 08/26/191700 cc: Art Tomas MD; None,PCP) Comparison with other Films: no changes (08/13/19) - CONSULTS/PCP/HOSPITALIST Notification #1 *Consult/PCP/Hospitalist*: Dr Vang Time Discussed: 20:10 Reason/Comments: discussed plan of care for pt admit, pt accepted for admit Consult Disposition: Admit - CHANGE OF SHIFT REPORT (ED Provider) 1 Report Given and Care Transferred to:: Dr. Saucedo Time of Transfer: 19:00 Items Pending: Labs, Other (disposition based on return to baseline mental status or admission/transfer for neuro) <Art Tomas - Last Filed: 08/26/19 20:42> - PLAN OF CARE/RESULTS Result Diagrams: 08/26/19 16:40 08/26/19 16:40 - REASSESSMENT Reassessment #2 Time Reassessed: 21:50 Status: unchanged (pt still poorly resonsive, will not reply to verbal questions or commands, wond acknowledge my request to pee in urinal. non-verbal tp placement of caude catheter, not uds + only canabinoids.) <Ryan Saucedo - Last Filed: 08/26/19 21:21> - PLAN OF CARE/RESULTS Progress/Plan/Lab Results: Vital Signs - 8 hr 08/26/19 15:01 08/26/19 16:25 08/26/19 16:26 Pulse Rate 93 H 126 H 114 H Respiratory Rate 18 17 13 Blood Pressure 103/72 106/87 O2 Sat by Pulse Oximetry 98 97 95 08/26/19 16:30 08/26/19 16:45 08/26/19 17:00 Pulse Rate 126 H 118 H 105 H Respiratory Rate 13 16 18 Blood Pressure O2 Sat by Pulse Oximetry 96 97 08/26/19 17:15 08/26/19 17:17 Pulse Rate 109 H 88 Respiratory Rate 30 H 16 Blood Pressure 106/87 O2 Sat by Pulse Oximetry 98 Laboratory Results - last 24 hr 08/26/19 08/26/19 08/26/19 16:40 16:40 16:40 WBC 7.77 RBC 5.29 Hgb 15.8 Hct 45.5 MCV 86.0 MCH 29.9 MCHC 34.7 RDW Std Deviation 12.0 Plt Count 279 MPV 12.0 H Immature Gran % (Auto) 0.0 Neut % (Auto) 41.7 L Lymph % (Auto) 46.6 Russell % (Auto) 8.8 Eos % (Auto) 2.3 Baso % (Auto) 0.6 Immature Gran # (Auto) 0.00 Neut # (Auto) 3.24 Lymph # (Auto) 3.62 H Russell # (Auto) 0.68 H Eos # (Auto) 0.18 Baso # (Auto) 0.05 Sodium 140 Potassium 3.8 Chloride 99 Carbon Dioxide 26 Anion Gap 15 BUN 22 Creatinine 1.0 Estimated GFR/1.73 m2 > 60 BUN/Creatinine Ratio 22 Glucose 87 POC Glucose Calculated Osmolality 282 Calcium 10.6 H Magnesium 2.2 Total Bilirubin 0.55 AST 27 ALT 16 Alkaline Phosphatase 115 Creatine Kinase Total Protein 8.1 Albumin 4.9 Globulin 3.2 Albumin/Globulin Ratio 1.5 Plasma Lactate Urine Source Urine Color Urine Turbidity Urine pH Ur Specific [place] Urine Protein Ur Glucose (Stick) Ur Ketones (Stick) Urine Blood Urine Nitrite Urine Bilirubin Urobilinogen Dipstick Urine Leukocytes Urine WBC (Auto) Urine RBC (Auto) U Epithel Cells (Auto) Urine Bacteria (Auto) Urine Opiates Screen Ur Oxycodone Screen Ur Methadone, Qual Ur Barbiturates Screen Ur Phencyclidine Scrn Ur Amphetamines Screen U Benzodiazepines Scrn Urine Cocaine Screen U Cannabinoids Screen Plasma/Serum Ethyl Alc 08/26/19 08/26/19 08/26/19 16:40 16:40 17:01 WBC RBC Hgb Hct MCV MCH MCHC RDW Std Deviation Plt Count MPV Immature Gran % (Auto) Neut % (Auto) Lymph % (Auto) Russell % (Auto) Eos % (Auto) Baso % (Auto) Immature Gran # (Auto) Neut # (Auto) Lymph # (Auto) Russell # (Auto) Eos # (Auto) Baso # (Auto) Sodium Potassium Chloride Carbon Dioxide Anion Gap BUN Creatinine Estimated GFR/1.73 m2 BUN/Creatinine Ratio Glucose POC Glucose 74 Calculated Osmolality Calcium Magnesium Total Bilirubin AST ALT Alkaline Phosphatase Creatine Kinase 310 H Total Protein Albumin Globulin Albumin/Globulin Ratio Plasma Lactate 2.2 Urine Source Urine Color Urine Turbidity Urine pH Ur Specific [place] Urine Protein Ur Glucose (Stick) Ur Ketones (Stick) Urine Blood Urine Nitrite Urine Bilirubin Urobilinogen Dipstick Urine Leukocytes Urine WBC (Auto) Urine RBC (Auto) U Epithel Cells (Auto) Urine Bacteria (Auto) Urine Opiates Screen Ur Oxycodone Screen Ur Methadone, Qual Ur Barbiturates Screen Ur Phencyclidine Scrn Ur Amphetamines Screen U Benzodiazepines Scrn Urine Cocaine Screen U Cannabinoids Screen Plasma/Serum Ethyl Alc 08/26/19 08/26/19 08/26/19 20:44 20:44 20:53 WBC RBC Hgb Hct MCV MCH MCHC RDW Std Deviation Plt Count MPV Immature Gran % (Auto) Neut % (Auto) Lymph % (Auto) Russell % (Auto) Eos % (Auto) Baso % (Auto) Immature Gran # (Auto) Neut # (Auto) Lymph # (Auto) Russell # (Auto) Eos # (Auto) Baso # (Auto) Sodium Potassium Chloride Carbon Dioxide Anion Gap BUN Creatinine Estimated GFR/1.73 m2 BUN/Creatinine Ratio Glucose POC Glucose 76 Calculated Osmolality Calcium Magnesium Total Bilirubin AST ALT Alkaline Phosphatase Creatine Kinase Total Protein Albumin Globulin Albumin/Globulin Ratio Plasma Lactate Urine Source CATH Urine Color YELLOW Urine Turbidity CLEAR Urine pH 5.5 Ur Specific [place] 1.038 Urine Protein 30 A Ur Glucose (Stick) NEGATIVE Ur Ketones (Stick) 40 A Urine Blood NEGATIVE Urine Nitrite NEGATIVE Urine Bilirubin NEGATIVE Urobilinogen Dipstick NORMAL Urine Leukocytes NEGATIVE Urine WBC (Auto) <10 Urine RBC (Auto) <10 U Epithel Cells (Auto) <10 Urine Bacteria (Auto) NEGATIVE Urine Opiates Screen NONE DETECTED Ur Oxycodone Screen NONE DETECTED Ur Methadone, Qual NONE DETECTED Ur Barbiturates Screen NONE DETECTED Ur Phencyclidine Scrn NONE DETECTED Ur Amphetamines Screen NONE DETECTED U Benzodiazepines Scrn NONE DETECTED Urine Cocaine Screen NONE DETECTED U Cannabinoids Screen PRESUMPTIVE POSITIVE A Plasma/Serum Ethyl Alc Orders Category Date Time Status FSBS/Accucheck Result NOW Care 08/26/19 20:25 Active Finger Stick Blood Sugar (ED) DIRECTED Care 08/26/19 16:31 Active Mendez Cath Insertion ORDERED Care 08/26/19 20:14 Active Notify if DIRECTED Care 08/26/19 16:31 Active Saline Loc NOW Care 08/26/19 16:31 Active CHEST-PORTABLE [RAD] Stat Exams 08/26/19 20:[address] HEAD W/O CONTRAST [CT] Stat Exams 08/26/19 16:31 Completed ALCOHOL BLOOD Stat Lab 08/26/19 16:40 Completed CBC WITH ELECTRONIC DIFF [HEME] Stat Lab 08/26/19 16:40 Completed CK TOTAL [CHEM] Stat Lab 08/26/19 16:40 Completed COMPREHENSIVE METABOLIC PANEL [CHEM] Stat Lab 08/26/19 16:40 Completed LACTATE, PLASMA [CHEM] Stat Lab 08/26/19 16:40 Completed MAGNESIUM [CHEM] Stat Lab 08/26/19 16:40 Completed PROLACTIN [HH] Stat Lab 08/26/19 16:40 Received URINALYSIS W/POSS RFLX CULT [URINALYSIS] Stat Lab 08/26/19 20:44 Completed URINE DRUG SCREEN Stat Lab 08/26/19 20:44 Completed 0.9% Sodium Chloride Inj [Ns] 1,000 ml Med 08/26/19 16:32 Discontinued IV 999 mls/hr Albuterol 2.5MG/Ipratrop 0.5MG [Duoneb (A & A)] Med 08/26/19 16:32 Discontinued 3 ml INH NOW ONE Levetiracetam [Keppra] 1,500 mg Med 08/26/19 18:30 Discontinued 0.9% Sodium Chloride Inj [Ns] 100 ml IV NOW Lorazepam [Ativan] Med 08/26/19 18:30 Discontinued 2 mg IV NOW ONE Aerosol Treatments Routine Oth 08/26/19 16:33 Completed Aerosol Treatments Stat Oth 08/26/19 16:33 Completed Seizure, New Onset Stat Oth 08/26/19 16:30 Ordered EKG [EKG] Stat Ther 08/26/19 20:25 Ordered Transfer/Admit Order [TRANSFER] Routine Transfer 08/26/19 20:27 Ordered Departure <Art Tomas - Last Filed: 08/26/19 20:42> - Departure Date of Disposition Decision: 08/26/19 Time of Disposition Decision: 21:19 Certified Medical Emergency: Emergent - Critical Care Note This patient required my direct & personal management of CC.: No <Ryan Saucedo - Last Filed: 08/26/19 21:21> - Departure DIAGNOSIS: New onset seizure without head trauma, Unresponsive episode, Altered mental status Disposition: ADMITTED INPATIENT 09 Condition: Stable Attestation - Physician/ SHAR Attestation Patient care was provided by Advanced Practice Provider:: No The physician spent face to face time with patient:: Yes Advanced Practice Provider documentation review:: Supervising physician onsite and consulted in the evaluation and care of this patient. The physician did have a face to face encounter with the patient. <Ryan Saucedo - Last Filed: 08/26/19 21:21> Note <Art Tomas - Last Filed: 08/26/19 20:42> couday catheter placed, clear urine returned, urine sent to lab (Art Tomas) This chart was documented by the indicated scribe, (Delia Holt, Scribe) and accurately reflects the services I performed and decisions made by Thom martin Kent A., MD, as attested by the provider's signature.
[2019-08-26 20:53] LABS: URINE SOURCE CATH
[2019-08-26 20:59] LABS: BILIRUBIN URINE NEGATIVE (NEGATIVE); BLOOD URINE NEGATIVE (NEGATIVE); COLOR YELLOW; GLUCOSE URINE NEGATIVE (NEGATIVE); KETONE URINE 40 mg/dL (NEGATIVE); LEUKOCYTES URINE NEGATIVE (NEGATIVE); NITRITE URINE NEGATIVE (NEGATIVE); PH URINE 5.5; PROTEIN URINE 30 mg/dL (NEGATIVE); SP GRAVITY URINE 1.038; TURBIDITY URINE CLEAR (CLEAR); UROBILINOGEN URINE NORMAL (NORMAL)
[2019-08-26 21:00] LABS: UR EPITHELIAL CELLS <10 /HPF (<10); URINE BACTERIA NEGATIVE /HPF; URINE RBC <10 /HPF (<10); URINE WBC <10 /HPF (<10)
[2019-08-26 21:07] LABS: UR AMPHETAMINES QUAL NONE DETECTED (NONE DETECT); UR BARBITUATES QUAL NONE DETECTED (NONE DETECT); UR BENZODIAZEPIN QUAL NONE DETECTED (NONE DETECT); UR CANNABINOIDS QUAL PRESUMPTIVE POSITIVE (NONE DETECT); UR COCAINE QUAL NONE DETECTED (NONE DETECT); UR METHADONE QUAL NONE DETECTED (NONE DETECT); UR OPIATES QUAL NONE DETECTED (NONE DETECT); UR OXYCODONE QUAL NONE DETECTED (NONE DETECT); UR PCP QUAL NONE DETECTED (NONE DETECT)
--- NOTE | 2019-08-26 21:15 | Diag Imaging Result Doc PS360 ---
EXAM: CHEST-PORTABLE - 08/26/2019 HISTORY: AMS,Seizures TECHNIQUE: Portable chest COMPARISON: 08/13/2019 FINDINGS: Heart size is normal. The lungs appear clear. There is no pleural effusion or pneumothorax identified. IMPRESSION: No evidence of acute disease. Electronically signed by Chava Andrea 08/26/2019 9:13 PM
[2019-08-26 21:47] LABS: ALLEN TEST YES; BE -2.7 mmoll (-3.0-3.0); BLOOD TYPE ARTERIAL; HCO3-(ACT) 22.8 mmoll (20.0-26.0); O2(CT) 19.1 mL/dL (15.0-23.0); O2HB 96.5 % (95.0-99.0); PCO2(98.6) 40 mmHg (35-45); PO2(98.6) 101 mmHg (60-100); SAMPLE BLOOD; pH(98.6) 7.36 (7.35-7.45)
[2019-08-26 21:48] LABS: MODALITY ROOM AIR
[2019-08-26 21:51] LABS: ACETAMINOPHEN < 1.2 ug/mL (10-30); SALICYLATES < 3.00 mg/dL (3-10)
--- NOTE | 2019-08-26 21:57 | EKG Report ---
Test Performed on : 08/26/2019 8:48:42 PM Test Reason : AMS,Seizure Blood Pressure : / mmHG Vent. Rate : 069 BPM Atrial Rate : 069 BPM P-R Int : 142 ms QRS Dur : 086 ms QT Int : 394 ms P-R-T Axes : 052 082 079 degrees QTc Int : 422 ms Normal sinus rhythm. with sinus arrhythmia. ST & T wave abnormality, consider anterior ischemia Abnormal ECG When compared with ECG of 15-AUG-2019 06:07, Non-specific change in ST segment in Anterior leads T wave inversion more evident in Anterior leads QT has lengthened Unconfirmed Result
[2019-08-26] MEDS ORDERED: D50W SYRINGE IV ONE (21:58)
[2019-08-26] MEDS ORDERED: TYLENOL PR PRN (23:40)
[2019-08-26] MEDS ORDERED: ZOFRAN IV PRN (23:40)
[2019-08-26] MEDS ORDERED: ATIVAN IV PRN (23:41)
[2019-08-26] MEDS ORDERED: SODIUM CHLORIDE 0.9% INJ SCH (23:45)
[2019-08-27] MEDS: NS 1,000 ML IV SCH ×3 (00:42→07:38)
[2019-08-27] MEDS: PROTONIX IV SCH (00:42)
[2019-08-27 03:03] LABS: CK INDEX 1.2 (0.0-2.5); CK-MB 4.04 ng/mL (0.0-5.0)
[2019-08-27] MEDS: D50W SYRINGE IV PRN ×2 (04:27→07:45)
--- NOTE | 2019-08-27 07:07 | HISTORY AND PHYSICAL ---
PRIMARY CARE PHYSICIAN: The patient does not have a primary care provider. CHIEF COMPLAINT: Seizure-like activity. HISTORY OF PRESENT ILLNESS: Mr. Osorio is a 23-year-old male who was in from what I understand the [facility] when he was noted to be having what was reported as seizure-like activity. They did call EMS, and have him brought to the ER. ER notes report that upon the patient's arrival the patient did appear to be postictal. He was nonverbal and drooling. He initially only responded with eye opening to deep sternal rub. Also, noted in the ER note throughout his ER visit evidently, he was reported to have had several episodes of shaking/seizure activity without waking up. The ER physician noted that his parents were at bedside and did state he had a recent onset of seizures, but also had a history of a psychiatric disorder for what I believe is schizoaffective disorder, bipolar type and drug abuse. Unfortunately, at this time, the patient is only responsive to painful stimuli and sternal rub with localization to pain and occasionally he will open his eyes. I do not have any family at bedside at this time. I did obtain his past medical history from a history and physical from a recent admission on 08/14/2019. It looks as though during this visit, the patient was treated for hallucinations initially though was noted to have seizure-like activity as well. His discharge summary did note discharge diagnoses of questionable seizure-like activity, grace-tachy syndrome and schizoaffective disorder. He did have an EEG performed on 08/14/2019, which did have impression of a normal EEG in the awake state. According to the discharge summary, the patient unfortunately was not able to get a psychiatric evaluation due to he did become agitated and was ultimately arrested and taken to longterm upon discharge. From the timeline of his discharge, his arrest upon discharge, he did have an ER visit on 08/20/2019. During this visit, he reports that his mother brought him to the ER. I gather that the patient upon his discharge on 08/15/2019 was taken into custody, though was released prior to his ER visit on 08/20/2019. During this ER visit on 08/20/2019, the patient was noted to have become agitated. He was screaming and cursing, and making threats to physician staff. He was ultimately taken into custody and to longterm on this visit as well. Though I cannot be sure due to he has been bonded out, and there is no officer at bedside at this time. I believe the patient has been in longterm since 08/20/2019. Upon evaluation in the ER, laboratory results were pretty unremarkable. He was noted to have a borderline low fingerstick blood sugar of 74, and did have a slightly elevated CK of 310. Urinalysis did not show any signs of infection. Urine drug screen was only positive for cannabinoids. Serum alcohol was 0. EKG showed normal sinus rhythm with a sinus arrhythmia at a rate of 69 with a QTc of 422. CT of the head without contrast did not show any acute abnormalities. Chest x-ray showed no evidence of acute disease either. While in the ER, he was given 1 L normal saline bolus, 2 mg Ativan IV, and Keppra 1500 mg IV infusion. Upon the time of my examination, the patient was resting in bed. He was in no acute distress. He is only responsive to painful stimuli of a sternal rub for which he does localize to pain though only occasionally will open his eyes. The patient does have an abrasion noted to his top lip as well as there are multiple areas of abrasions all over. There were several other areas of abrasions noted to his person. The patient was placed in ICU for close monitoring. REVIEW OF SYSTEMS: At this time, we are unable to perform review of systems due to the patient's current condition and mentation. PAST MEDICAL HISTORY: This was obtained from a previous history and physical 1. Schizoaffective disorder, bipolar type. 2. Generalized anxiety disorder. 3. History of suicide ideations. 4. History of erratic behavior. 5. Questionable seizure-like activity. 6. Grace-tachy syndrome. PAST SURGICAL HISTORY: There is no known surgical history. SOCIAL HISTORY: The patient currently is in custody and was prior to his arrival to the ER today [facility] though the nurse reports he had been monitored out and released. According to previous history and physical, the patient did previously live with his brother. Though we do not know if he still currently uses tobacco alcohol or illicit drugs, though he did have a urine drug screen was positive for cannabinoids during his ER visit today. FAMILY HISTORY: We were unable to obtain family history due to the patient's current condition and mentation. ALLERGIES: Patient has no known allergies. HOME MEDICATIONS: Though we were not able to verify his home medication at this time due to his current condition mentation, it was noted that he previously took Risperdal 10 mg p.o. daily. DIAGNOSTIC DATA/LABORATORY RESULTS: White blood cell count is 7770, hemoglobin 15.8, hematocrit 45.5, and platelet count is 279,000. Sodium 140, potassium 3.8, chloride 99, serum bicarb 26, BUN 22, and creatinine 1. GFR greater than 60, glucose 87, calcium 10.6, and magnesium 2.2. Liver function tests within normal limits. CK is 310. Plasma lactate is 2.2. Salicylate level is less than 3. Acetaminophen level is less than 1.2. Serum alcohol is 0. Arterial blood gases were obtained on room air with a pH of 7.36, pCO2 of 40, PO2 of 101, HC03 22.8 with a base excess of - 2.7, O2 saturation is 99. Urinalysis showed positive for protein, ketones, was negative for glucose, blood, nitrites, leukocytes, white blood cells, or bacteria. Urine drug screen positive for cannabinoids. EKG shows normal sinus rhythm with a sinus arrhythmia, and ST and T-wave abnormality. He had a rate of 69 with a QTc of 422. Head CT did not show any acute abnormalities as per Radiology. Chest x-ray showed the heart size is normal. Lungs are clear. There are no pleural effusions or pneumothorax identified. PHYSICAL EXAMINATION: VITAL SIGNS: Temperature 96.2 degrees, heart rate 73, respirations 18, blood pressure is 95/71 with a MAP of 73. He is 100% oxygen saturation on room air. GENERAL: Mr. Osorio is a 23-year-old male who is resting on the ER stretcher. He was in no acute distress. He was only responsive to painful stimuli with sternal rub though he does localize to pain and will occasionally open his eyes. HEENT: Head is atraumatic, normocephalic. Pupils are 3 mm bilaterally, though pupillary light response was difficult to assess. Oral mucosa was slightly dry, and was unable to examine his posterior pharynx due to the patient did have his mouth closed and would not open it up. NECK: Supple. Trachea midline. CARDIOVASCULAR: Patient has S1, S2 present. No murmurs, gallops, or rubs appreciated with a regular rate and rhythm. PULMONARY: Patient has symmetrical chest expansion bilaterally. Lung sounds are clear to auscultation in bilateral upper ore[place] though were difficult to auscultate in bilateral lower oreilly. I think mainly this is due to the patient cooperation that he was taking in that he had shallow inspiration. ABDOMEN: Soft. Does not appear to be distended. There is no facial grimacing, guarding, or localization of pain upon palpation. Bowel sounds are present in all 4 quadrants, and were normoactive. EXTREMITIES: No cyanosis or edema noted. Radial and pedal pulses were 2+ bilaterally. INTEGUMENTARY: The patient's skin color is normal for his race, and is dry. He does have several abrasions noted on his person. One is located on his top lip. The others are scattered throughout on the upper and lower extremities and hands. NEUROLOGICAL: Patient is at this time only responsive to painful stimuli. He does localize to pain, though only occasionally will open his eyes. He is though when stimulated he has become agitated and will move around. He has moved all 4 extremities. Note at this time his neurological exam is limited due to his current condition and mentation. ASSESSMENT AND PLAN: 1. Possible seizure. I did perform a CT in the ER upon his arrival, which did not show any acute abnormalities. The patient during his most recent admission on 08/14/2019, did receive an MRI of the brain with and without contrast. It was noted to be a normal MRI. Please see MRI report. He also did have an EEG performed as well. Given that he has recently had this study performed, we will not immediately repeat this at this time. We have placed a consult with Neurology. We will await their evaluation and further recommendations. The patient did receive a dose of Keppra and Ativan in the ER. We will continue to monitor him closely. We have implemented seizure and aspiration precautions. We will place Ativan as needed for seizure activity. His electrolytes are within normal limits at this time, including magnesium. His serum alcohol was 0. We have implemented neuro checks, continuous cardiac telemetry, and pulse oximetry with frequent vital signs and frequent fingerstick blood sugars. He will be NPO. We will continue to follow. 2. History of schizoaffective disorder. 3. History of grace-tachy syndrome. From what I understand, the patient has not had any episodes of this since arriving to the ER. His heart rate has remained in the 70s to 80s range, and briefly getting up into the 90s for the high. Though he will be on continuous cardiac telemetry. His CK was slightly elevated at 310. This could be secondary to seizure activity. We have added on a troponin, and we will do a series of cardiac enzymes as well. We will also repeat EKG in the morning. We will continue to monitor. 4. Deep vein thrombosis prophylaxis. Provided with sequential compression devices. 5. The patient has been placed in the ICU for close monitoring. We will repeat a CBC, CMP, and cardiac enzymes in the morning. Also, pending is a prolactin. Further orders and recommendations pending hospital course, diagnostic studies, and physician evaluation. Dictated by JOVON Barajas for Silviano Vang MD cc: Silviano Vang MD
[2019-08-27] MEDS ORDERED: NS 250 ML IV ONE (07:09)
[2019-08-27 07:27] LABS: BASO# 0.04 X1000 (0.0-0.2); BASO% 0.6 % (0.0-0.8); EOS# 0.16 X1000 (0.0-0.7); EOS% 2.3 % (0.0-10.0); HEMATOCRIT 44.6 % (42.0-52.0); LYMPH# 2.77 X1000 (1.2-3.4); LYMPH% 40.4 % (20.5-51.1); MCH 29.8 PG (27-31); MCHC 33.6 g/dL (33-37); MCV 88.5 FL (81-99); MONO# 0.58 X1000 (0.11-0.59); MONO% 8.5 % (1.7-9.3); MPV 12.6 FL (7.4-10.4); NEUT% 48.2 % (42.2-75.2); PLT 229 X1000 (130-400); RBC 5.04 XMIL (4.7-6.1); RDW 12.1 % (11.5-14.5); WBC 6.85 X1000 (4.8-10.8)
--- NOTE | 2019-08-27 07:32 | EKG Report ---
Test Performed on : 08/27/2019 07:00:14 AM Test Reason : Seizure, AMS,Hx of Jeevan-Tachy Syndrome Blood Pressure : / mmHG Vent. Rate : 092 BPM Atrial Rate : 092 BPM P-R Int : 156 ms QRS Dur : 074 ms QT Int : 384 ms P-R-T Axes : 090 087 089 degrees QTc Int : 474 ms Sinus rhythm. with marked sinus arrhythmia. ST elevation, consider early repolarization, pericarditis, or injury Nonspecific ST and T wave abnormality Prolonged QT Abnormal ECG When compared with ECG of 26-AUG-2019 20:48, (Unconfirmed) QT has lengthened Unconfirmed Result
[2019-08-27 07:59] LABS: AGAP 16; ALB/GLOB RATIO 1.5; ALBUMIN 4.6 g/dL (3.5-5.0); ALKALINE PHOSPHATASE 109 U/L (32-122); BUN 17 mg/dL (8-22); CALCIUM 9.5 mg/dL (8.8-10.2); CHLORIDE 103 mmol/L (98-107); CK TOTAL 357 U/L (24-204); COSMO 281; ESTIMATED GFR > 60; GLUCOSE 64 mg/dL (70-104); GOT 30 U/L (10-34); GPT 16 U/L (10-44); SODIUM 141 mmol/L (136-145); TCO2 22 mmol/L (25-35); TOTAL BILIRUBIN 0.77 mg/dL (0.20-1.00); TOTAL PROTEIN 7.6 g/dL (6.3-8.3)
[2019-08-27] MEDS: D5 1/2 NS + KCL 20 MEQ 1,000 ML IV SCH ×2 (11:00→22:00)
[2019-08-27 11:25] LABS: CK INDEX 0.9 (0.0-2.5); CK-MB 2.87 ng/mL (0.0-5.0)
--- NOTE | 2019-08-27 11:25 | PROGRESS NOTE ---
DATE: 08/27/2019 SUBJECTIVE: This morning, Mr. Osorio remains mute, will not even respond yes or no to any questioning with me, and it has been the same with the nurses as well. Unfortunately, there was no family member at the bedside at the time of the encounter. Of note, Mr. Osorio was just discharged from [facility] on 08/15/2019 after he became belligerent, refusing [facility] consult. Security was called and he was discharged to long term. OBJECTIVE: Current Vital Signs: Blood pressure is 112/80, pulse of 87, respirations are 17, temperature is 97.3 degrees. General Examination: Mr. Osorio is a 23-year-old, - [place] gentleman. He is in bed. No distress. HEENT: Mucosa is pink and moist. Anicteric. Acyanotic. Neck: Supple. Chest: Clear to auscultation. No crepitations. No rhonchi. Cardiovascular: Regular rate and rhythm. Abdomen: Soft, nontender. Bowel sounds present. Extremities: No pedal edema. LOADMASTER: The patient is awake, alert. Does not respond to any questioning. He remains extremely noncooperative. He makes some sounds like he wants to respond but then he just would not respond. His pupils are equal and they are reactive. He will track with his head in the room whenever you move around. When I tried to do Babinski, he withdrew very forcefully from the maneuver. Laboratory Data: CBC is completely normal. Chemistry is also normal. Glucose was slightly low at 59. The patient is currently on IV fluids. ASSESSMENT: 1. Jerking movements on arrival, presumably seizures. The patient has had similar episodes in previous admissions. Neurology evaluated him. EEG and MRI were negative. Unsure if this is just pseudoseizures. He has been observed 24 hours in the intensive care unit. No seizures. We will move him out. 2. Low glucose, most likely from not eating. We are going to add glucose to his intravenous fluids. 3. History of schizoaffective disorder, bipolar type, with an episode of acute psychosis. The patient has been evaluated multiple times in [facility]. Last discharge seems to suggest that he has supposed to be on olanzapine, so we are going to start him back on his medication. We will also consult [facility] to evaluate him today. PLAN: In general, I think Mr. Osorio is fairly stable. I think he probably has been going through pseudoseizures and not a true seizure disorder. He has history of severe bipolar schizoaffective disorder and I think he probably needs to be in a psychiatric facility. From a medical standpoint, I think he is stable. We will get neurology to see him and I have also consulted [facility]. We will get the Mendez catheter out today and move him to the medical floor under seizure precautions. cc: Guero Blair MD
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
[2019-08-27] MEDS ORDERED: ZYPREXA ZYDIS PO SCH ×2 (21:00)
[2019-08-28] MEDS: PROTONIX IV SCH (00:50)
[2019-08-28 15:47] VITALS: BP 116/81
--- NOTE | 2019-08-29 15:31 | DISCHARGE SUMMARY ---
ADMISSION DATE: 08/26/2019 DISCHARGE DATE: 08/28/2019 DISPOSITION: Home with mother. CONSULTATION DURING THIS ADMISSION: 1. Neurology was consulted. Patient was seen by Dr. Mitchell. 2. [facility] was also consulted however Mr. Osorio will not talk to them on the screening exam. INVASIVE PROCEDURES DONE DURING THIS ADMISSION: None. IMAGING STUDIES OF SIGNIFICANCE: 1. A CT scan of the head without contrast showed negative exams. 2. A chest x-ray showed no evidence of acute disease. ADMISSION DIAGNOSES: 1. Possible seizures. 2. Schizoaffective disorder. 3. Jeevan-tachy syndrome. DIAGNOSES AT THE TIME OF DISCHARGE: 1. Jerking movements on arrival secondary to pseudoseizures. 2. History of schizoaffective disorder. 3. Bipolar disorder with episode of acute psychosis. DISCHARGE MEDICATION: Risperidone 2 mg p.o. daily. PRESENTING COMPLAINT: Of seizure-like activity. HISTORY OF PRESENTING COMPLAINT: Mr. Osorio is a 23-year-old gentleman who is known to have schizoaffective disorder, bipolar, was recently discharged from [facility] and was actually arrested from the hospital because of being extremely violent over there. I understand he was in custody when he had what appears to be tremors. This was interpreted to be seizures, seizure-like activity, so he was brought into the emergency room for evaluation. HOSPITAL COURSE: Mr. Osorio in the a.m. was evaluated in the ER. At the time he was did not want to respond to anybody. It was the same in the ICU when he got admitted. He did not talk to anybody until almost 12 hours later when he started talking to the nurse because he said he wanted some food. He was evaluated by Neurology, Dr. Mitchell, who reports that Mr. Osorio has had an EEG on 08/14 and it was unremarkable. He also has had an MRI of the brain which was unremarkable. In his report he did not seem to have found any specific neurological diagnosis and there was no any suggestion from Neurology standpoint. Mr. Osorio had a tele consult with [facility] however he declined to wanting to talk to them. This morning, he did not want to talk to me either. However, I went back mid day, lunch was being served, he told me he was doing okay. He actually even requested more ketchup for his lunch with the kitchen staff. He said was doing okay. He has not had any more seizures. We started him back on his risperidone and we are going to discharge him. [facility] has been [facility]. Time spent for discharge is 32 minutes. cc: MD Jame Whitfield III, MD
== END 2019-08-28 16:00 | disposition home or self-care (01) | DRG 91 ==
LOC: SUPCPDRO → ED 14:56 → SUATTDRO 21:12 → ICU 21:12 → 4N 08-27 12:24
PROVIDERS: ATTEND Internal Medicine

== ENCOUNTER 2019-08-30 13:26 | Inpatient (IN) ==
[2019-08-30] MEDS ORDERED: GEODON IM ONE (13:41)
[2019-08-30] MEDS ORDERED: BENADRYL IM ONE (13:41)
[2019-08-30] MEDS ORDERED: STERILE WATER INJ. INJ ONE (13:41)
[2019-08-30 14:26] LABS: BASO# 0.03 X1000 (0.0-0.2); BASO% 0.5 % (0.0-0.8); EOS% 1.6 % (0.0-10.0); HEMATOCRIT 41.7 % (42.0-52.0); HEMOGLOBIN 14.3 g/dL (14.0-18.0); IMM GRAN# 0.02 X1000 (0.0-0.04); IMM GRAN% 0.3 % (0.0-0.5); LYMPH# 2.39 X1000 (1.2-3.4); LYMPH% 38.1 % (20.5-51.1); MCH 30.2 PG (27-31); MCHC 34.3 g/dL (33-37); MCV 88.2 FL (81-99); MONO# 0.44 X1000 (0.11-0.59); MPV 12.5 FL (7.4-10.4); NEUT% 52.5 % (42.2-75.2); PLT 202 X1000 (130-400); RBC 4.73 XMIL (4.7-6.1); WBC 6.28 X1000 (4.8-10.8)
[2019-08-30 14:35] LABS: AGAP 12; ALB/GLOB RATIO 1.6; ALBUMIN 4.5 g/dL (3.5-5.0); ALKALINE PHOSPHATASE 103 U/L (32-122); BUN 13 mg/dL (8-22); CALCIUM 9.9 mg/dL (8.8-10.2); CHLORIDE 100 mmol/L (98-107); COSMO 273; CREATININE 0.9 mg/dL (0.7-1.2); ESTIMATED GFR > 60; GLUCOSE 111 mg/dL (70-104); GOT 24 U/L (10-34); GPT 17 U/L (10-44); POTASSIUM 3.5 mmol/L (3.5-5.1); SODIUM 136 mmol/L (136-145); TCO2 24 mmol/L (25-35); TOTAL BILIRUBIN 0.39 mg/dL (0.20-1.00); TOTAL PROTEIN 7.3 g/dL (6.3-8.3)
[2019-08-30 14:54] LABS: FREE T4 1.08 ng/dL (0.93-1.70); TSH 1.34 uIUmL (0.27-4.20)
[2019-08-30 17:33] LABS: URINE SOURCE CATH
--- NOTE | 2019-08-30 17:34 | Diag Imaging Result Doc PS360 ---
EXAM: CHEST-PORTABLE HISTORY: ams TECHNIQUE: Single view COMPARISON: 08/26/2019 FINDINGS: The lungs are well expanded. The heart is not enlarged. The vessels are not distended. There are no infiltrates. No effusion identified. IMPRESSION: Negative exam. Electronically signed by Neel Madrigal 08/30/2019 5:32 PM
[2019-08-30 17:36] LABS: BILIRUBIN URINE NEGATIVE (NEGATIVE); BLOOD URINE NEGATIVE (NEGATIVE); COLOR YELLOW; GLUCOSE URINE NEGATIVE (NEGATIVE); KETONE URINE NEGATIVE (NEGATIVE); LEUKOCYTES URINE NEGATIVE (NEGATIVE); NITRITE URINE NEGATIVE (NEGATIVE); PROTEIN URINE TRACE mg/dL (NEGATIVE); SP GRAVITY URINE 1.024; TURBIDITY URINE CLEAR (CLEAR); UR EPITHELIAL CELLS <10 /HPF (<10); URINE BACTERIA NEGATIVE /HPF; URINE RBC <10 /HPF (<10); URINE WBC <10 /HPF (<10); UROBILINOGEN URINE NORMAL (NORMAL)
[2019-08-30 18:02] LABS: UR AMPHETAMINES QUAL NONE DETECTED (NONE DETECT); UR BARBITUATES QUAL NONE DETECTED (NONE DETECT); UR BENZODIAZEPIN QUAL NONE DETECTED (NONE DETECT); UR CANNABINOIDS QUAL PRESUMPTIVE POSITIVE (NONE DETECT); UR COCAINE QUAL NONE DETECTED (NONE DETECT); UR METHADONE QUAL NONE DETECTED (NONE DETECT); UR OPIATES QUAL NONE DETECTED (NONE DETECT); UR OXYCODONE QUAL NONE DETECTED (NONE DETECT); UR PCP QUAL NONE DETECTED (NONE DETECT)
--- NOTE | 2019-08-30 18:10 | PROVIDER DOCUMENTATION ---
This chart was entered by Kamron Daniels Scribe, acting as scribe for Art Tomas MD. HPI-Psychological Disorder - General Source: EMS Unable to obtain history due to:: other - History of Present Illness-Psych Onset/Duration: reports: just prior to arrival Timing: reports: still present, constant Severity: reports: moderate Situational problems related to:: reports: legal problems Psychiatric Complaints: reports: other (not responsive) Substance Use: reports: marijuana Previous psych related hospitalizations?: Yes Patient arrived by:: EMS called by spouse/family Similar Symptoms Previously?: Yes Recently seen or treated by another doctor?: Yes - Suicidal Ideation Suicide Risk Assessment: male sex, depressed, schizophrenia, psychosis Clinician's estimation of suicide risk?: uncertain risk <Art Tomas - Last Filed: 08/30/19 18:07> <Tamy Carrera - Last Filed: 08/30/19 19:59> - General Stated Complaint: SEIZURE, UNRESPONSIVE Time Seen by Provider: 08/30/19 13:34 Allergies/Adverse Reactions: Patient Allergies Allergy/AdvReac Type Severity Reaction Status Date / Time No Known Allergies Allergy Verified 08/30/19 19:48 Home Medications: Home Medication List Medication Instructions Recorded Confirmed Last Taken Type Risperidone [Risperdal] 2 mg PO DAILY 08/26/19 08/30/19 Unknown History - History of Present Illness-Psych Nature of Presenting Problem: EMS reports a call for unresponsive on a 23 y/o M with a long hx of phych disorders. On arrival to the ED pt is lying in the bed in no distress and not responding to conversation with physician, or family. He resist hand drop and resist opening his eyes. He was recently seen for the same thing and admitted with Neuro work up. He appears catatonic (Art Tomas) Review of Systems - Adult - REVIEW OF SYSTEMS - ADULT ROS:: unobtainable per condition <Art Tomas - Last Filed: 08/30/19 18:07> - REVIEW OF SYSTEMS - ADULT ROS:: unobtainable per condition Constitutional: reports: other (unable to obtain) <Tamy Carrera - Last Filed: 08/30/19 19:59> Past History - Adult - PAST MEDICAL HISTORY-ADULT Review of Records: reports: Old Records Reviewed, Nursing Assessment Review, Medications Reviewed Major Childhood Illnesses: reports: denies history Cardiovascular: reports: denies history Respiratory: reports: denies history Gastrointestinal: reports: denies history Obstetrical/Gynecological: reports: denies history Genitourinary: reports: denies history Musculoskeletal: reports: denies history Neurological: reports: denies history Psychiatric: reports: depression Endocrine/Immune: reports: denies history Other Conditions: reports: denies history - PRIOR SURGERIES/PROCEDURES Surgical/Procedure History: reports: reviewed, not pertinent - PRIOR HOSPITALIZATIONS Prior Hospitalizations: reports: none - IMMUNIZATION STATUS Childhood Immunizations: See Nurse Assessment Flu Vaccine: See Nurse Assessment - FAMILY HISTORY Family History: reviewed, not pertinent <Art Tomas - Last Filed: 08/30/19 18:07> Physical Exam-Psych Focus - Physical Exam-Psych Initial Vital Signs Reviewed: Yes Appearance: neat, no apparent distress Neurological: calm, responds to pain, other (resist arm drop). negative: normal mood/affect Behavior/Eye Contact/Speech: negative: cooperative, good eye contact (Resist opening eyess), normal speech HENMT: moist mucous membranes, normal ENT inspection, pharynx normal Neck: non-tender, supple, normal inspection Respiratory: lungs clear, normal breath sounds, no pleuratic chest pain, no respiratory distress, no accessory muscle use Cardiovascular: normal peripheral pulses, regular rate, rhythm Abdominal Exam: non tender, soft Back Exam: normal inspection, no CVA tenderness, no vertebral tenderness Extremity: non-tender, normal inspection, no pedal edema Integumentary: normal color, normal turgor, warm/dry <Art Tomas - Last Filed: 08/30/19 18:07> Progress - PLAN OF CARE/RESULTS Result Diagrams: 08/30/19 14:04 08/30/19 14:04 - REASSESSMENT Reassessment #1 Time Reassessed: 18:08 Status: unchanged (Given IM Geodon and Benadryl to obtain lab testing and urine and to maybe change patient from catatonia, however, patient still "unresponsive," not speaking or verbalizing, even towards family.) Reassessment Comment: Awaiting CT scan brain, then possible admission - XRAY 1 XRAY Study: Chest Impression: Normal ( EXAM: CHEST-PORTABLE HISTORY: ams TECHNIQUE: Single view COMPARISON: 08/26/2019 FINDINGS: The lungs are well expanded. The heart is not enlarged. The vessels are not distended. There are no infiltrates. No effusion identified. IMPRESSION: Negative exam. Electronically signed by Neel Madrigal 08/30/2019 5:32 PM 08/30/192 Interpreting Physician: Neel Madrigal MD Dictated Date/Time: 08/30/19 1730 cc: Art Tomas MD; None,PCP), See EMR Report - CHANGE OF SHIFT REPORT (ED Provider) 1 Report Given and Care Transferred to:: Dr. Carrera Time of Transfer: 19:00 Items Pending: CT/MRI Results (head and then consider consulting hospitalist as patient is catatonic.) <Art Tomas - Last Filed: 08/30/19 18:07> - PLAN OF CARE/RESULTS Result Diagrams: 08/30/19 14:04 08/30/19 14:04 - REASSESSMENT Reassessment #2 Status: unchanged (pt signed out to me by Dr. Tomas pending CT results. CT unremarkable continues to be unresponsive and likely due to conversion disorder. Will admit for further evaluation and treatment. Discussed case wtih Dr. Vang, Hospitalist who will see and admit pt.) - CT/MRI 1 CT Study: Head Impression: Normal (FINDINGS: No parenchymal hemorrhage. No epidural or subdural hematoma. No subarachnoid hemorrhage. No mass identified on this noncontrasted exam. No hydrocephalus. No sinus opacification. IMPRESSION: No change.) <Tamy Carrera - Last Filed: 08/30/19 19:59> - PLAN OF CARE/RESULTS Progress/Plan/Lab Results: Vital Signs - 8 hr 08/30/19 13:32 08/30/19 13:49 08/30/19 13:50 Temperature 98.1 F Pulse Rate 108 H 86 104 H Respiratory Rate 16 14 9 L Blood Pressure 126/84 120/77 O2 Sat by Pulse Oximetry 97 99 08/30/19 16:30 08/30/19 17:00 08/30/19 17:30 Temperature Pulse Rate 69 77 63 Respiratory Rate 16 14 16 Blood Pressure 123/80 138/90 112/75 O2 Sat by Pulse Oximetry 100 100 99 08/30/19 18:00 08/30/19 18:30 08/30/19 19:00 Temperature Pulse Rate 71 65 86 Respiratory Rate 16 17 23 Blood Pressure 103/74 104/74 115/80 O2 Sat by Pulse Oximetry 97 97 96 Laboratory Results - last 24 hr 08/30/19 08/30/19 08/30/19 14:03 14:04 14:04 WBC 6.28 RBC 4.73 Hgb 14.3 Hct 41.7 L MCV 88.2 MCH 30.2 MCHC 34.3 RDW Std Deviation 12.0 Plt Count 202 MPV 12.5 H Immature Gran % (Auto) 0.3 Neut % (Auto) 52.5 Lymph % (Auto) 38.1 Webster % (Auto) 7.0 Eos % (Auto) 1.6 Baso % (Auto) 0.5 Immature Gran # (Auto) 0.02 Neut # (Auto) 3.30 Lymph # (Auto) 2.39 Webster # (Auto) 0.44 Eos # (Auto) 0.10 Baso # (Auto) 0.03 Sodium Potassium Chloride Carbon Dioxide Anion Gap BUN Creatinine Estimated GFR/1.73 m2 BUN/Creatinine Ratio Glucose POC Glucose 93 Calculated Osmolality Calcium Total Bilirubin AST ALT Alkaline Phosphatase Total Protein Albumin Globulin Albumin/Globulin Ratio Vitamin B12 TSH Free T4 Urine Source Urine Color Urine Turbidity Urine pH Ur Specific Edroy Urine Protein Ur Glucose (Stick) Ur Ketones (Stick) Urine Blood Urine Nitrite Urine Bilirubin Urobilinogen Dipstick Urine Leukocytes Urine WBC (Auto) Urine RBC (Auto) U Epithel Cells (Auto) Urine Bacteria (Auto) Urine Opiates Screen Ur Oxycodone Screen Ur Methadone, Qual Ur Barbiturates Screen Ur Phencyclidine Scrn Ur Amphetamines Screen U Benzodiazepines Scrn Urine Cocaine Screen U Cannabinoids Screen Plasma/Serum Ethyl Alc 08/30/19 08/30/19 08/30/19 14:04 14:04 17:20 WBC RBC Hgb Hct MCV MCH MCHC RDW Std Deviation Plt Count MPV Immature Gran % (Auto) Neut % (Auto) Lymph % (Auto) Webster % (Auto) Eos % (Auto) Baso % (Auto) Immature Gran # (Auto) Neut # (Auto) Lymph # (Auto) Webster # (Auto) Eos # (Auto) Baso # (Auto) Sodium 136 Potassium 3.5 Chloride 100 Carbon Dioxide 24 L Anion Gap 12 BUN 13 Creatinine 0.9 Estimated GFR/1.73 m2 > 60 BUN/Creatinine Ratio 14 Glucose 111 H POC Glucose Calculated Osmolality 273 Calcium 9.9 Total Bilirubin 0.39 AST 24 ALT 17 Alkaline Phosphatase 103 Total Protein 7.3 Albumin 4.5 Globulin 2.8 Albumin/Globulin Ratio 1.6 Vitamin B12 1146 H TSH 1.34 Free T4 1.08 Urine Source CATH Urine Color YELLOW Urine Turbidity CLEAR Urine pH 6.0 Ur Specific Edroy 1.024 Urine Protein TRACE A Ur Glucose (Stick) NEGATIVE Ur Ketones (Stick) NEGATIVE Urine Blood NEGATIVE Urine Nitrite NEGATIVE Urine Bilirubin NEGATIVE Urobilinogen Dipstick NORMAL Urine Leukocytes NEGATIVE Urine WBC (Auto) <10 Urine RBC (Auto) <10 U Epithel Cells (Auto) <10 Urine Bacteria (Auto) NEGATIVE Urine Opiates Screen Ur Oxycodone Screen Ur Methadone, Qual Ur Barbiturates Screen Ur Phencyclidine Scrn Ur Amphetamines Screen U Benzodiazepines Scrn Urine Cocaine Screen U Cannabinoids Screen Plasma/Serum Ethyl Alc 08/30/19 17:20 WBC RBC Hgb Hct MCV MCH MCHC RDW Std Deviation Plt Count MPV Immature Gran % (Auto) Neut % (Auto) Lymph % (Auto) Webster % (Auto) Eos % (Auto) Baso % (Auto) Immature Gran # (Auto) Neut # (Auto) Lymph # (Auto) Webster # (Auto) Eos # (Auto) Baso # (Auto) Sodium Potassium Chloride Carbon Dioxide Anion Gap BUN Creatinine Estimated GFR/1.73 m2 BUN/Creatinine Ratio Glucose POC Glucose Calculated Osmolality Calcium Total Bilirubin AST ALT Alkaline Phosphatase Total Protein Albumin Globulin Albumin/Globulin Ratio Vitamin B12 TSH Free T4 Urine Source Urine Color Urine Turbidity Urine pH Ur Specific Edroy Urine Protein Ur Glucose (Stick) Ur Ketones (Stick) Urine Blood Urine Nitrite Urine Bilirubin Urobilinogen Dipstick Urine Leukocytes Urine WBC (Auto) Urine RBC (Auto) U Epithel Cells (Auto) Urine Bacteria (Auto) Urine Opiates Screen NONE DETECTED Ur Oxycodone Screen NONE DETECTED Ur Methadone, Qual NONE DETECTED Ur Barbiturates Screen NONE DETECTED Ur Phencyclidine Scrn NONE DETECTED Ur Amphetamines Screen NONE DETECTED U Benzodiazepines Scrn NONE DETECTED Urine Cocaine Screen NONE DETECTED U Cannabinoids Screen PRESUMPTIVE POSITIVE A Plasma/Serum Ethyl Alc Orders Category Date Time Status Nursing- Obtain EKG once Care 08/30/19 17:07 Active Straight Catheterization ORDERED Care 08/30/19 17:07 Active CHEST-PORTABLE [RAD] Stat Exams 08/30/19 17:[address] HEAD W/O CONTRAST [CT] Stat Exams 08/30/19 17:06 Completed ALCOHOL BLOOD Stat Lab 08/30/19 14:04 Completed CBC WITH ELECTRONIC DIFF [HEME] Stat Lab 08/30/19 14:04 Completed COMPREHENSIVE METABOLIC PANEL [CHEM] Stat Lab 08/30/19 14:04 Completed FREE T4 Stat Lab 08/30/19 14:04 Completed TSH Stat Lab 08/30/19 14:04 Completed URINALYSIS W/POSS RFLX CULT [URINALYSIS] Stat Lab 08/30/19 17:20 Completed URINE DRUG SCREEN Stat Lab 08/30/19 17:20 Completed VITAMIN B12 Stat Lab 08/30/19 14:04 Completed Diphenhydramine [Benadryl] Med 08/30/19 13:41 Discontinued 25 mg IM NOW ONE Water, Sterile Inj [Sterile Water Inj.] Med 08/30/19 13:41 Discontinued 1.2 ml INJ NOW ONE Ziprasidone [Geodon] Med 08/30/19 13:41 Discontinued 20 mg IM NOW ONE EKG [EKG] Stat Ther 08/30/19 17:07 Ordered Departure <Art Tomas - Last Filed: 08/30/19 18:07> - Departure Date of Disposition Decision: 08/30/19 Time of Disposition Decision: 19:58 Certified Medical Emergency: Emergent - Critical Care Note This patient required my direct & personal management of CC.: No <Tamy Carrera - Last Filed: 08/30/19 19:59> - Departure DIAGNOSIS: Unresponsive state Disposition: ADMITTED INPATIENT 09 Condition: Stable Attestation - Physician/ SHAR Attestation Patient care was provided by Advanced Practice Provider:: No <Art Tomas - Last Filed: 08/30/19 18:07> - Physician/ SHAR Attestation Patient care was provided by Advanced Practice Provider:: No The physician spent face to face time with patient:: Yes Advanced Practice Provider documentation review:: Supervising physician onsite and consulted in the evaluation and care of this patient. The physician did have a face to face encounter with the patient. <Tamy Carrera - Last Filed: 08/30/19 19:59> This chart was documented by the indicated scribe, (Kamron Daniels, Jovon) and accurately reflects the services I performed and decisions made by me, Art Tomas MD, as attested by the provider's signature.
--- NOTE | 2019-08-30 19:34 | Diag Imaging Result Doc PS360 ---
EXAM: CT HEAD W/O CONTRAST HISTORY: catatonia TECHNIQUE: CT head without contrast COMPARISON: 08/26/2019 FINDINGS: No parenchymal hemorrhage. No epidural or subdural hematoma. No subarachnoid hemorrhage. No mass identified on this noncontrasted exam. No hydrocephalus. No sinus opacification. IMPRESSION: No change. This exam was performed using automated exposure control, adjustment of mA or kV according to patient size, and/or use of iterative reconstruction technique. Electronically signed by Neel Madrigal 08/30/2019 7:31 PM
--- NOTE | 2019-08-30 19:57 | ED EKG INTERP ---
This chart was entered by Kadie Harris Scribe, acting as scribe for Tamy Carrera MD. EKG Interpretation - EKG Time of EKG reading by physician:: 19:30 EKG Read and Signed by:: Tamy Carrera EKG Interpretation (*Must complete 3 of following elements*): Abnormal Rate: 51 Rhythm: sinus bradycardia [place]: normal QRS: normal [place] Interval: normal ST Wave: non-specific ST changes (T wave abnormality, consider anterior ischemia) Attestation - Physician/ SHAR Attestation Patient care was provided by Advanced Practice Provider:: No The physician spent face to face time with patient:: Yes Advanced Practice Provider documentation review:: Supervising physician onsite and consulted in the evaluation and care of this patient. The physician did have a face to face encounter with the patient. This chart was documented by the indicated scribe, (Kadie Harris Scribe) and accurately reflects the services I performed and decisions made by , Tamy Carrera MD, as attested by the provider's signature.
--- NOTE | 2019-08-30 21:59 | HISTORY AND PHYSICAL ---
PRIMARY CARE PHYSICIAN: None. CHIEF COMPLAINT: Unresponsive. HISTORY OF PRESENTING ILLNESS: A 23-year-old male with a history of schizoaffective/bipolar disorder, anxiety, noncompliance, who was brought to the emergency department due to patient being unresponsive. The patient not answering any questions and withdraws to tactile stimuli. The patient apparently was in the hospital several days ago and been just discharged for similar symptoms with negative neuro workup . However,patient would not converse and would not respond to any questions. Subsequently it was thought that we will place him for observation for further evaluation, management. PAST MEDICAL HISTORY: Includes schizoaffective/bipolar disorder, anxiety, noncompliance. PAST SURGICAL HISTORY: None. ALLERGIES: No known drug allergies. CURRENT MEDICATIONS: Unknown. SOCIAL HISTORY: No history of smoking or alcohol, seems that he uses marijuana. FAMILY HISTORY: No history of coronary disease. REVIEW OF SYSTEMS: Unable to obtain. PHYSICAL EXAMINATION: GENERAL: The patient is resting comfortably without any respiratory distress. VITAL SIGNS: Temperature 98.1 degrees, pulse 108, respirations 16, blood pressure 126/84. HEENT: Atraumatic, normocephalic. NECK: No masses. CHEST: Clear to auscultation. CARDIOVASCULAR: Regular rate and rhythm. ABDOMEN: Soft. Positive bowel sounds. EXTREMITIES: No edema. NEUROLOGIC: He responds to tactile stimuli. GENITOURINARY: No bladder distention. SKIN: Warm. LABORATORIES AND STUDIES: WBC 6.28, hemoglobin 14.3, hematocrit 41.7, platelets 202,000. UA negative for nitrite. Sodium 136, potassium 3.5, chloride 100, CO2 24, BUN is 13, creatinine 0.9, glucose is 111. Tox screen is positive for cannabinoids. CT of the head, no change. ASSESSMENT: A 23-year-old male with a history of psychiatric illness including schizoaffective and bipolar disorder, anxiety and noncompliance, was brought to the emergency department due to patient being unresponsive. He does not answer any questions. However he is resting comfortably. His laboratories and other vitals are within normal limits. He apparently was just discharged about 3 days ago with similar symptoms with negative neuro work up. However due to his presenting symptoms, we will place him for observation for further evaluation, management. 1. Unresponsive. 2. Schizoaffective/bipolar disorder. 3. Noncompliance. PLAN: 1. We will admit patient to medical floor. 2. Continue with neuro checks. 3. Probably need to consult Psychiatry. 4. We will continue with supportive care. 5. We will continue to follow and reassess. Make further recommendation based on patient's clinical course. cc: Silviano Vang MD MTDD
[2019-08-30] MEDS ORDERED: TYLENOL PO PRN (23:00)
[2019-08-30] MEDS ORDERED: ZOFRAN IV PRN (23:00)
--- NOTE | 2019-08-31 05:25 | EKG Report ---
Test Performed on : 08/30/2019 7:28:43 PM Test Reason : AMS Blood Pressure : / mmHG Vent. Rate : 051 BPM Atrial Rate : 051 BPM P-R Int : 154 ms QRS Dur : 086 ms QT Int : 448 ms P-R-T Axes : 063 086 080 degrees QTc Int : 412 ms Sinus bradycardia. T wave abnormality, consider anterior ischemia Abnormal ECG When compared with ECG of 27-AUG-2019 07:00, Vent. rate has decreased BY 41 BPM QT has shortened Unconfirmed Result
[2019-08-31 08:03] LABS: BASO# 0.04 X1000 (0.0-0.2); BASO% 0.9 % (0.0-0.8); EOS# 0.09 X1000 (0.0-0.7); EOS% 1.9 % (0.0-10.0); HEMATOCRIT 42.9 % (42.0-52.0); HEMOGLOBIN 14.3 g/dL (14.0-18.0); LYMPH# 2.01 X1000 (1.2-3.4); LYMPH% 43.3 % (20.5-51.1); MCH 29.9 PG (27-31); MCHC 33.3 g/dL (33-37); MCV 89.7 FL (81-99); MONO# 0.27 X1000 (0.11-0.59); MONO% 5.8 % (1.7-9.3); MPV 12.9 FL (7.4-10.4); NEUT# 2.23 X1000 (1.4-6.5); NEUT% 48.1 % (42.2-75.2); PLT 189 X1000 (130-400); RBC 4.78 XMIL (4.7-6.1); RDW 12.2 % (11.5-14.5); WBC 4.64 X1000 (4.8-10.8)
[2019-08-31] MEDS: RISPERDAL PO SCH ×2 (10:08→10:10)
--- NOTE | 2019-08-31 11:33 | PROGRESS NOTE ---
DATE: 08/31/2019 SUBJECTIVE: Patient is lying comfortably in bed. He is not complaining of pain. He is following commands for me but is not consistent. He was able to move his feet, open his mouth and look at me upon command. He also started talking to me after I asked him if he was hungry and he has requested a sandwich. After every single question, he started laughing and then talking but not louder so I could not understand what he was saying. When I ask if he can talk louder, he just smiled again and did not answer my question. It looks like he has been hospitalized recently on 08/27/2019 for the same and actually apparently some seizures, but electrocardiogram done on 08/14/2019 is normal. Neurology Department has been evaluating this patient and actually they saw this patient on 08/27/2019. EEG and MRI both were normal on 08/14/2019, and Neurology agreed with psychiatric evaluation at that time. There is no reported new seizure activity at this time. He does have a history of schizoaffective disorder as well. His laboratory seems to be stable including TSH and free T4, and it looks like he has been using cannabinoid products, but this is not new. It has been going on at least since 2016. New CT scan of the head is negative. No changes. Chest x-ray seems to be negative as well. He was also hospitalized on 08/14/2019, also for questionable seizure-like activity. MEDICATIONS: I do not have any documented home medication except risperidone 2 mg p.o. daily. OBJECTIVE: Vital Signs: Temperature 98.6 degrees, pulse 56, respiratory rate 18, blood pressure 131/81, oxygen saturation 100% on room air. HEENT: Head normocephalic, no trauma. Neck: Supple. No JVD. No masses. Central trachea. Chest: Clear to auscultation. No wheezing. No rales. Abdomen: Soft, nontender, nondistended. No hepatosplenomegaly. Extremities: No edema, no clubbing, no cyanosis. Neurological: The patient is awake. He is alert. He is answering to some of my questions but he is also laughing with every question. He is following commands on and off. He does answer questions, especially when the question is related to food. I cannot hear everything he says because he does not want to speak louder. He is moving his upper extremities. He is sitting also by himself and moving his lower extremities spontaneously. LABORATORY DATA: WBC 4.6, hemoglobin 14.3, hematocrit 42.9, platelets 189,000. CMP from yesterday stable including TSH and free T4. ASSESSMENT AND PLAN: 1. Apparently, this patient was found unresponsive, not answering questions basically, but his eyes are open and he now started to talk. I do believe this is more related to a psychiatric issue than a medical problem. I have requested an evaluation by Psychiatric Department and we will start from there. 2. Schizoaffective/bipolar disorder. Probably, this is the source of the problem. CT scan of the head negative as well as the chest x-ray. Laboratory looks fine and also the vital signs. 3. Apparently history of anxiety, aware. 4. Medical noncompliance, aware. 5. Apparently, he had a some history of seizures. I am not quite sure about it. We never had this kind of seizure disorder during this hospitalization or even previously. This has been always reported to us. He has been having MRIs an EEGs before and they are normal, and this was done recently last month. He has also been evaluated by Neurology Department multiple times. cc: Fercho Carlson MD
[2019-09-01 07:41] LABS: AGAP 18; BUN 14 mg/dL (8-22); CALCIUM 10.1 mg/dL (8.8-10.2); CHLORIDE 103 mmol/L (98-107); COSMO 287; ESTIMATED GFR > 60; GLUCOSE 94 mg/dL (70-104); POTASSIUM 3.9 mmol/L (3.5-5.1); SODIUM 144 mmol/L (136-145); TCO2 23 mmol/L (25-35)
[2019-09-01] MEDS: RISPERDAL PO SCH (11:17)
--- NOTE | 2019-09-01 12:53 | PROGRESS NOTE ---
DATE: 09/01/2019 SUBJECTIVE: No big changes compared with yesterday. Today, he is repeating all the questions that I am asking him multiple times. He wants to drink apple juice. He was able to say his name and his date of , but it is really difficult to hear what he says because he is not speaking louder. He avoids eye contact with me. OBJECTIVE: Vital Signs: Temperature 98.1 degrees, pulse 82, respiratory rate 18, blood pressure 133/84, oxygen saturation 99 on room air. HEENT: Head normocephalic. No trauma. PERRLA. Neck: Supple. No JVD. No masses. Central trachea. Chest: Clear to auscultation. No wheezing. No rales. Abdomen: Soft, nontender, nondistended. No hepatosplenomegaly. Extremities: No edema, no clubbing, no cyanosis. Neurological: The patient is lying comfortably in bed. He is not complaining of pain. He answered some of my simple questions, but he is not answering all my questions. He is repeating multiple times, the same question that I have been asking, and he asked for apple juice today. Today, he is not following commands for me. LABORATORY DATA: Sodium 144, potassium 3.9, chloride 103, bicarbonate 23, BUN 14, creatinine 1, glucose 94, calcium 10.1. ASSESSMENT AND PLAN: 1. Apparently, this patient was found, and he was not answering any questions and not acting properly. It looks like this is more related to a psychiatric issue than a medical problem. Laboratory has been stable, as well as vital signs. Psychiatric Department has been consulted, and they are working on this patient. 2. History of schizoaffective/bipolar disorder. Probably, this is the source of the problem. CT scan of the head has been negative, as well as the chest x-ray. Laboratory looks stable, as well as vital signs. 3. Apparently, history of anxiety. Aware. 4. Medical noncompliance. Aware. 5. Apparently, he had some history of seizures, but no seizure activity during this hospitalization. He had an MRI done and electroencephalogram done before, and they were normal, and that was recently done last month. Also, he was evaluated multiple times by Neurology Department. cc: Fercho Carlson MD
[2019-09-02] MEDS: RISPERDAL PO SCH (09:36)
--- NOTE | 2019-09-02 13:52 | PROGRESS NOTE ---
DATE: 09/02/2019 SUBJECTIVE: No big changes compared with yesterday. As per the nurse, this patient stood up drop by himself and he started walking inside the room back and forth a couple times to the same point. Today when I examined him, he was not talking to me, but he was not sleeping. He removed the blanket from his face, looked at me and then put the blanket back on top of his head. He has been eating on and off. OBJECTIVE: Vital Signs: Temperature 98.2 degrees, pulse 56, respiratory rate 16, blood pressure 126/90, oxygen saturation 97% on room air. HEENT: Head normocephalic, no trauma. PERRLA. Neck: Supple. No JVD. No masses. Central trachea. Chest: Clear to auscultation. No wheezing. No rales. Abdomen: Soft. Extremities: No edema. Neurological: This patient is lying comfortably in bed. He is not complaining of pain. He is not answering questions today for me but he was looking at me and then he covered himself back with a blanket. He moves all 4 extremities spontaneously and as per the nurse, he stood up and did some steps back and forth a couple times. LABORATORY DATA: No lab work done today. Laboratory from yesterday and the day before yesterday stable. ASSESSMENT AND PLAN: 1. Apparently, this patient was found and he was not answering any questions and not acting properly. It looks like this is more related to a psychiatric issue than a medical problem. Laboratory seems to be stable as well as vital signs. Psychiatric Department has been consulted and they are working on this patient already. 2. History of a schizoaffective/bipolar/anxiety disorder. Probably, this is the source of the problem. CT scan of the head has been negative. X-ray within normal limits. 3. Apparently history of anxiety. Aware. 4. Medical noncompliance. Aware. He has actually been refusing treatment here. 5. Apparently, he has some history of seizures but we did not see any kind of seizure activities during the hospitalization. He had an MRI done and also an EEG done before and they were normal, recently, also he has been evaluated multiple times by Neurology Department. cc: Fercho Carlson MD
[2019-09-03] MEDS: RISPERDAL PO SCH ×2 (10:57→16:37)
--- NOTE | 2019-09-03 16:36 | PROGRESS NOTE ---
DATE: 09/03/2019 SUBJECTIVE: No family members at the bedside. When I evaluated this patient, he was holding his breath on purpose constantly. He looked at me when I talked to him, but he basically ignored me, and he continued holding his breath. I tried to stimulate him and I dropped his chest, I grabbed his legs, and he was withdrawing for pain. He has been eating on and off. We have been trying to send this patient to a psychiatric center, and I believe [facility] is on board. They have been on in contact with us. I think the last time was yesterday. PHYSICAL EXAMINATION: Vital Signs: Temperature 97.6 degrees, pulse 106, respiratory rate 18, blood pressure 105/79. This is from yesterday. Oxygen saturation 98 percent on room air. HEENT: Head normocephalic. No trauma PERRLA. Neck: Supple. No JVD. No masses. Central trachea. Chest: Clear to auscultation. No wheezing. No rales. Abdomen: Soft. Extremities: No edema. No clubbing. No cyanosis. Neurological: The patient is lying comfortably in bed. He is not complaining of pain. He withdraws with pain stimulation. He is holding his breath constantly. LABORATORY: No lab work done today. A CBC and CMP from previous days within normal limits. ASSESSMENT AND PLAN: 1. Patient was found basically with mental status changes and not answering any question and not acting properly. It looks to me that this is more related to a psychiatric issue than a medical problem. Laboratory seems to be stable as well as vital signs. Psychiatric Department has been consulted and they are working on this patient already. This patient came in before for the same issue. Neurology Department has been following this patient before as well. We did an MRI on 08/14/2019, just last month, that showed normal pre and post contrasted MRI of the brain. Also, we did an echocardiogram. We did a head CT that did not show any changes. We also did an electroencephalogram that basically was normal in the awake state. 2. History of schizoaffective/bipolar/anxiety disorder. Probably, this is source of the problem. CT scan of the head, MRI from last month, and EEG within normal limits. X-ray within normal limits also. 3. Apparently, history of anxiety. Aware. 4. Medical noncompliance aware. Apparently, he was admitted before for possibility of seizures, but I do not think this patient has been having seizure or any kind of seizure activities at least not during this hospitalization. He has not been placed on antiseizure medications either. It looks like he was on risperidone before. cc: Fercho Carlson MD
[2019-09-04 07:38] LABS: AGAP 16; BUN 14 mg/dL (8-22); CALCIUM 10.2 mg/dL (8.8-10.2); CHLORIDE 98 mmol/L (98-107); COSMO 283; CREATININE 1.1 mg/dL (0.7-1.2); ESTIMATED GFR > 60; GLUCOSE 92 mg/dL (70-104); POTASSIUM 4.5 mmol/L (3.5-5.1); SODIUM 142 mmol/L (136-145); TCO2 28 mmol/L (25-35)
[2019-09-04] MEDS: RISPERDAL PO SCH (10:37)
--- NOTE | 2019-09-04 17:37 | PROGRESS NOTE ---
DATE: 09/04/2019 SUBJECTIVE: No family members at the bedside. When I evaluated this patient in the morning he was holding his breath on purpose. He saw me and then he look back to the TV. He did not answer any of my questions, but he is withdrawing with pain. I rubbed his chest and his upper extremities, and all of them moved with pain stimulation. OBJECTIVE: Vital signs: Temperature 98 degrees, pulse 109, respiratory rate 14, blood pressure 127/85, oxygen saturation 99% on room air. HEENT: Head normocephalic, no trauma. PERRLA. Neck supple. No JVD. No masses. Central trachea. Chest clear to auscultation. No wheezing. No rales. Abdomen is soft. Extremities: No edema, no clubbing. No cyanosis. Neurological: The patient is lying in bed. He is not complaining of pain. He withdraws with pain stimulation. He is holding his breath today again on purpose. He saw me when I entered the room and then he looked back to the wall and/or TV. He did not answer any of my questions. LABORATORY DATA: Sodium 142, potassium 4.5, chloride 98, bicarbonate 28, BUN 14, creatinine 1.1, glucose 92, calcium 10.2. ASSESSMENT AND PLAN: 1. The patient was found basically with mental status changes, not answering any questions and not acting appropriately. I believe this is related to a psychiatric issue than any other medical problem. I do not see any kind of seizure activity on this patient. Psychiatric department has been consulted and they are working on this patient already. They will try to hospitalize this patient in a psychiatric unit, but they do not have a bed for now at this moment. Neurology Department already evaluated this patient before in the previous admission. We did an MRI on 08/14/2019 last month, and basically it was a normal precontrast and postcontrast MRI of the brain. Also, we did an EEG that did not show any problems. 2. History of schizoaffective/bipolar/anxiety disorder. Probably this is the source of the problem. CT scan of the head, MRI and EEG within normal limits. MRI and EEG were done last month. 3. Medical noncompliance, aware. This patient apparently has been admitted before for the possibility of seizures. I do not think this patient has been having seizures, and he was evaluated previously by Neurology Department. He has not been placed on antiseizure medications either. We will just keep an eye on him. cc: Fercho Carlson MD
[2019-09-05 08:09] LABS: BASO# 0.06 X1000 (0.0-0.2); BASO% 0.9 % (0.0-0.8); EOS# 0.31 X1000 (0.0-0.7); EOS% 4.5 % (0.0-10.0); HEMATOCRIT 44.3 % (42.0-52.0); HEMOGLOBIN 14.7 g/dL (14.0-18.0); LYMPH# 3.19 X1000 (1.2-3.4); LYMPH% 46.7 % (20.5-51.1); MCH 29.5 PG (27-31); MCHC 33.2 g/dL (33-37); MONO# 0.44 X1000 (0.11-0.59); MONO% 6.4 % (1.7-9.3); MPV 11.9 FL (7.4-10.4); NEUT# 2.83 X1000 (1.4-6.5); NEUT% 41.5 % (42.2-75.2); PLT 256 X1000 (130-400); RBC 4.98 XMIL (4.7-6.1); WBC 6.83 X1000 (4.8-10.8)
[2019-09-05 08:42] LABS: AGAP 15; BUN 17 mg/dL (8-22); CALCIUM 10.2 mg/dL (8.8-10.2); CHLORIDE 100 mmol/L (98-107); COSMO 280; ESTIMATED GFR > 60; GLUCOSE 78 mg/dL (70-104); POTASSIUM 3.8 mmol/L (3.5-5.1); SODIUM 140 mmol/L (136-145); TCO2 25 mmol/L (25-35)
--- NOTE | 2019-09-05 14:58 | PROGRESS NOTE ---
DATE: 09/05/2019 SUBJECTIVE: No family members at the bedside, when I evaluated this patient he was looking at the TV, he was not looking at me or answering any of my questions, he is still withdrawing with pain. I turned the TV off and then he saw my face and then he turned his face to the TV again. I continued asking question, but he did not answer questions and not following commands, then I turned the TV on again and left the room. He is eating a little bit. His laboratory today is normal. He seems to be stable. OBJECTIVE: Vital Signs: Temperature 98.5 degrees, pulse 107, respiratory rate 20, blood pressure 112/80, oxygen saturation 99 on room air. HEENT: Head normocephalic, no trauma, PERRLA. Neck: Supple. No JVD. No masses. Central trachea. Chest: Clear to auscultation. No wheezing. No rales. Abdomen: Soft. Extremities: I do not see any edema, no clubbing, no cyanosis. Neurological: The patient is lying in bed, he is looking at the TV. He looked at me when I turned the TV off and then he saw the TV again, he is tolerating p.o. LABORATORY: Laboratory stable. WBC 6.8, hemoglobin 14.7, hematocrit 44.3, platelets 256,000. Sodium 140, potassium 3.8, chloride 100, bicarbonate 25, BUN 17, creatinine 1, glucose 78, calcium 10.2. ASSESSMENT AND PLAN: 1. Mental status changes. He is not answering questions or following commands, I believe this is related to a psychiatric disorder other than a medical problem. I do not see any kind of seizure activity on this patient. Psychiatric department has been consulted and they have been working on this patient already, they will try to hospitalize this patient in a psychiatric unit, but they do not have a bed available at this moment. Neurology Department evaluated this patient on his previous hospitalization. We did an MRI on 08/14/2019, last month, that basically was normal. Also, an EEG was done that did not show any problems. 2. History of schizoaffective/bipolar/anxiety disorder, probably this is the source of his problem. CT scan of the head is negative during this hospitalization. 3. Medical noncompliance, aware. cc: Fercho Carlson MD
[2019-09-05] MEDS: RISPERDAL PO SCH (16:53)
[2019-09-06] MEDS: RISPERDAL PO SCH (09:43)
--- NOTE | 2019-09-06 14:31 | PROGRESS NOTE ---
DATE: 09/06/2019 SUBJECTIVE: No family members at the bedside. The patient is looking at the TV at this moment. He is not answering any of my questions or looking at me when I talk to him. OBJECTIVE: Vital Signs: Temperature 98.2 degrees, pulse 112, respiratory rate 20, blood pressure 129/84, oxygen saturation 99 on room air. HEENT: Head normocephalic. No trauma. PERRLA. Neck: Supple. No JVD. No masses. Central trachea. Chest: Clear to auscultation. Abdomen: Soft. Extremities: No changes. No edema. Neurological: The patient is lying in bed, and he is looking at the TV. He is not looking at me when I talk to him, or answering any of my questions. LABORATORY DATA: No lab work done today. Laboratory from yesterday is stable. ASSESSMENT AND PLAN: 1. Mental status changes. He is not answering questions or following commands. This is likely related to a psychiatric disorder other than a medical problem. I do not see any kind of seizure activity on this patient. Psychiatry Department has been consulted, pending bed placement. 2. History of schizoaffective/bipolar/anxiety disorder. Probably, this is source of his problem. CT scan of the head is negative during this hospitalization, and he had an electroencephalogram and MRI done on his previous admission that were within normal limits. 3. Medical noncompliance. Aware. cc: Fercho Carlson MD
[2019-09-07] MEDS: RISPERDAL PO SCH (10:40)
[2019-09-07 11:40] VITALS: BP 102/73
--- NOTE | 2019-09-08 15:13 | DISCHARGE SUMMARY ---
ADMISSION DATE: 08/30/2019 DISCHARGE DATE: 09/07/2019 PRIMARY CARE PHYSICIAN: None. ADMISSION DIAGNOSES: 1. Unresponsive. 2. Schizoaffective bipolar disorder. 3. Noncompliance. DISCHARGE DIAGNOSES: 1. Mental status changes, likely related to psychiatric disorder other than medical problem. 2. History of schizoaffective bipolar anxiety disorder. 3. Medical noncompliance. SUMMARY OF FINDINGS: This is a 23-year-old male with a history of schizoaffective bipolar disorder and anxiety with medical noncompliance brought into the emergency room due to patient being unresponsive, not answering any questions, and withdrawal to tactile stimuli. He was in the hospital several days prior, and had just discharge for similar symptoms with a negative neuro workup. We provided supportive care. We consulted psych, and now is being discharged to [facility] for psychiatric evaluation for further evaluation and treatment. DISCHARGE MEDICATIONS: Tylenol 650 mg p.o. q.6 hours p.r.n. and Risperdal 2 mg p.o. daily. TIME SPENT: This is a 35 minute discharge. Dictated by JOVON Michaels for Fercho Carlson MD cc: JOVON Michaels MD
== END 2019-09-07 12:57 | DRG 885 ==
LOC: SUPCPDRO → ED 13:26 → SUATTDRO 22:36 → 3N 22:36
PROVIDERS: ATTEND Internal Medicine